=== PATIENT | male | born 1940 | race Caucasian/White ===

== ENCOUNTER 2020-10-18 15:48 | Inpatient (IN) | payer OTHER ==
--- NOTE | 2020-10-18 15:39 | R.PREADM ---
PRE-ADMISSION SCREENING FORM SCREENING DATE AND TIME 10/18/2020 08:48 (GLASS MAKER) ANTICIPATED REHAB ADMISSION DATE 10/20/2020 REFERRING FACILITY [facility] REFERRAL DATE AND TIME 10/18/2020 08:48 (GLASS MAKER) ACUTE ADMIT DATE 10/18/2020 Previous Rehabilitation(s): No. ACUTE CUSTOM SEAMSTRESS/DC TIME RECORDER FLAQUITO VELARDE ATTENDING PHYSICIAN VERONA REFERRING PHYSICIAN [facility] REHAB FACILITY [facility] CLINICAL LIAISON Rosalinda Qureshi PHYSICIAN REVIEWER Dr. Mitchel Nieves M.D. MR# [id number] NAME TABATHA BELTRE [address]ESS [id number] [facility] [place] [address] [place] [address] PHONE [facility] [id number] DATE OF 1940 AGE 80 SSN# [id number] GENDER male MARITAL STATUS RACE unknown race ADMIT FROM 01 - Home (private home/apt. board/care, assisted living, penitentiary, transitional living) PRE-HOSPITAL LIVING SETTING 01 - Home (private home/apt. board/care, assisted living, penitentiary, transitional living) HOME TYPE AND DETAILS Type of home: single family house # of levels in the residence: 1 # of steps within the residence: 0 # of steps to enter the residence: 0 PRE-HOSPITAL LIVING WITH Family/Relatives FAMILY SUPPORT Yes PRIMARY FAMILY CONTACT NAME LIZET BELTRE PRIMARY FAMILY CONTACT PHONE PRIMARY FAMILY CONTACT ALT. PHONE PRIMARY FAMILY CONTACT RELATIONSHIP Spouse PHONE PRIMARY FAMILY CONTACT ON ADM.? no IS PRIMARY FAMILY CONTACT AUTH. REP.? no 1ST EMERGENCY CONTACT LIZET BELTRE 1ST CONTACT PHONE 1ST CONTACT ALT. PHONE 1ST CONTACT RELATIONSHIP Spouse PHONE 1ST CONTACT ON ADM. no IS 1ST CONTACT AUTH. REP.? no PHONE 2ND CONTACT ON ADM.? no PATIENT EMPLOYMENT STATUS Retired (for age) PATIENT EMPLOYER No Employer PAYOR INFORMATION: 1ST PAYOR NAME MEDICARE 1ST PAYOR PHONE 1ST PAYOR INJURY/ILLNESS DUE TO ACCIDENT? No ANOTHER DEMOCRAT RESPONSIBLE? No PRIMARY REHAB/ACUTE DIAGNOSIS: FX SHOULDER, DEBILITATED ONSET DATE 10/18/2020 REHAB IMPAIRMENT CATEGORY (TEVIN): 20 Miscellaneous (Misc) does NOT meet 60% rule PRIMARY DIAGNOSIS-RELATED SURGERIES: N/A SUMMARY OF ACUTE HOSPITALIZATION: Pt. is a 80 yo Right-handed male of unknown race. On 10/18/2020 he was admitted to [facility] with diagnosis FX SHOULDER, DEBILITATED. His impairment category is Debility 16 - Debility (16). Pre-morbidly, Pt. was independent/mod-I in Self-Care, Communication, and Social Cognition; and he had good Locomotion, Transfers Control, Sphincter Control, and Social Cognition. Currently, he has deficits of Locomotion, Balance, Safety Awareness, Sphincter Control, and Endurance . Pt. is now referred to [facility] for acute in-patient rehabilitation in order to maximize patient's functional independence in activities of daily living, strength, ROM, and mobi lity. Patient has realistic goal of being discharged at assistance level 7-Ind to reside at Home with Fami ly/Relatives. 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 CURRENT SPHINCTER CONTROL: Pre-hospital bladder status: unspecified # of bladder accidents in the last 7 days prior to screenin Pre-hospital bowel status: unspecified # of bowel accidents in the last 7 days prior to screenin Last Bowel Movement Date: 10/18/2020 CURRENT LOCOMOTION STATUS: distance walked LESS THAN 50 feet W RW DETAILED CURRENT FUNCTIONAL STATUS: - Bladder accident frequency: Ind - No accidents in the past 7 days - Bowel accident frequency: Ind - No accidents in the past 7 days - Walking score based on distance walked: 0(N/A) - Wheelchair score based on distance traveled: 0(N/A) QI SCORES: - Self-Care A. Eating 03-Partial/moderate assistance B. Oral hygiene 03-Partial/moderate assistance C. Toileting hygiene 03-Partial/moderate assistance E. Shower/bathe self 03-Partial/moderate assistance F. Upper body dressing 03-Partial/moderate assistance G. Lower body dressing 03-Partial/moderate assistance H. Putting on/taking off footwear 03-Partial/moderate assistance - Mobility A. Roll left and right 03-Partial/moderate assistance B. Sit to lying 03-Partial/moderate assistance C. Lying to sitting on side of bed 03-Partial/moderate assistance D. Sit to stand 03-Partial/moderate assistance E. Chair/bmk-wa-stdto transfer 03-Partial/moderate assistance F. Toilet transfer 03-Partial/moderate assistance G. Car transfer 03-Partial/moderate assistance I. Walk 10 feet 03-Partial/moderate assistance J. Walk 50 feet with two turns 88-Not attempted due to medical condition or safety concerns K. Walk 150 feet 88-Not attempted due to medical condition or safety concerns L. Walking 10 feet on uneven surfaces 88-Not attempted due to medical condition or safety concerns M. 1 step (curb) 88-Not attempted due to medical condition or safety concerns N. 4 steps 88-Not attempted due to medical condition or safety concerns O. 12 steps 88-Not attempted due to medical condition or safety concerns P. Picking up object 88-Not attempted due to medical condition or safety concerns R. Wheel 50 feet with two turns 88-Not attempted due to medical condition or safety concerns S. Wheel 150 feet 88-Not attempted due to medical condition or safety concerns - Bladder and Bowel Bladder continence Bowel continence - Endurance Good - Balance Good - Safety Awareness Good CURRENT FUNC. DEFICITS: Self-Care and Mobility CURRENT / PREVIOUS ASSISTIVE DEVICES: Rolling Walker HISTORY OF FALLS. HAS THE PATIENT HAD TWO OR MORE FALLS IN THE PAST YEAR OR ANY FALL WITH INJURY IN T HE PAST YEAR?: No PRIOR SURGERY. DID THE PATIENT HAVE MAJOR SURGERY DURING THE 100 DAYS PRIOR TO ADMISSION?: No THERAPY NOTES FROM ACUTE CARE: Attached. SPECIAL NEEDS: - Safety Concerns Skin breakdown precautions needed due to skin breakdown risk PATIENT NEEDS ACTIVE AND ONGOING THERAPEUTIC INTERVENTION OF MULTIPLE THERAPY DISCIPLINES, INCLUDING: - Dietary and Nutrition Adequate Nutrition. Nutritional Education. Nutritional Supplements. PATIENT NEEDS CLOSE MEDICAL SUPERVISION BY A REHABILITATION PHYSICIAN FOR: Coordination of Treatment Team PATIENT REQUIRES 24X7 REHAB NURSING FOR MEDICAL AND FUNCTIONAL MGT. OF THE FOLLOWING DEFICITS: Disease Management Medication Management Patient/Family Education Providing Safe Environment PATIENT REQUIRES INTENSIVE, COORDINATED INTERDISCIPLINARY APPROACH TO REHAB: Arranging Home Equipment/Services Discharge Planning Family Intervention/Training Experimental Physicist/Case Management PATIENT REHAB POTENTIAL: Warren BELTRE is able and expected to receive 3 hours of individualized therapy daily on at least 5 of every 7 days Warren Govea prognosis for significant practical improvement within a reasonable period of time appe ars Good Expected level of measurable improvement will be of a practical value to Warren BELTRE's functional cap acity or adaptations to impairments Has a viable Discharge Plan Medically appropriate; condition is sufficiently stable to participate in intensive rehab program DISCHARGE PLAN: - Estimated Length of Stay (days) 13. - Consensus on plan Discharge plan has been discussed with primary caregiver. Patient/Family is in agreement with the jeffrey n. Primary caregiver is in agreement with the plan. - Patient/Family Goals Return home independently. - Planned Living Setting Upon Discharge Home, to live with Family/Relatives. Transitional Living. RECOMMENDED CARE LEVEL: IRF RECOMMENDATION DETAILS: Recommended Admission to Comprehensive Rehabilitation Program to Increase Functional Riley SCREENER'S COMPLETENESS CONFIRMATION: - Screening Confirmation The patient data collection on this preadmission screening form is finished PHYSICIANS REVIEW AND ADMISSION DETERMINATION Admit - Based on my review of the Pre-Admission Screening results, in my medical judgment and experie nce, I concur with the findings and recommend admission to [facility], as this patient requires an IRF level of care. SIGNATURE PANEL: Internal Grinder Tender - [electronically] signed by Rosalinda Qureshi on 10/18/2020 at 09:37 (GLASS MAKER) Internal Grinder Tender - [electronically] signed by Darwin Carlin PT on 10/18/2020 at 15:01 (GLASS MAKER) Physician Reviewer - [electronically] signed by Dr. Mitchel Nieves M.D. on 10/18/2020 at 15:39 (GLASS MAKER )
[2020-10-19 10:51] VITALS: BMI 3924.6
[2020-10-19] MEDS ORDERED: ALBUTEROL IH PRN ×2 (11:25→14:25)
[2020-10-19] MEDS ORDERED: IPRATROPIUM IH PRN ×2 (11:25→14:25)
[2020-10-19] MEDS ORDERED: ALBUTEROL 2.5 MG/3 ML NEB SOL NEB PRN (12:00)
[2020-10-19] MEDS ORDERED: IPRATROPIUM BROM 0.5MG/2.5ML IH PRN (12:01)
--- NOTE | 2020-10-19 13:17 | R.HP ---
HISTORY AND PHYSICAL FACILITY: [facility] ENCOUNTER DATE AND TIME: 10/19/2020 13:06 (DIRECTOR FUNERAL) MR#: [id number] NAME TABATHA BELTRE ADDRESS: [address] [place] [address] [facility] [place] [id number] PHONE: DATE OF : 1940 AGE: 80 SSN# [id number] GENDER: Male DEXTERITY Right-handed MARITAL STATUS RACE Unknown race PRE-HOSPITAL LIVING SETTING 01 - Home (private home/apt. board/care, assisted living, long term, transitional living) PRE-HOSPITAL LIVING WITH Family/Relatives ENCOUNTER PHYSICIAN: Dr. Mitchel Nieves M.D. REFERRING DOCTOR: LARON RHOADES DATE OF ADMISSION: 10/19/2020 13:06 (DIRECTOR FUNERAL) REFERRING FACILITY [facility] HOME TYPE AND DETAILS: Type of home: single family house # of levels in the residence: 1 # of steps within the residence: 0 # of steps to enter the residence: 0 ONSET DATE: 10/18/2020 PRIMARY DIAGNOSIS-RELATED SURGERIES: N/A HISTORY OF PRESENT ILLNESS (HPI): Pt. is a 80 yo Right-handed male of unknown race. On 10/18/2020 he was admitted to [facility] with diagnosis FX SHOULDER, DEBILITATED. His impairment category is Debility 16 - Debility (16). Pre-morbidly, Pt. was independent/mod-I in Self-Care, Communication, and Social Cognition; and he had good Locomotion, Transfers Control, Sphincter Control, and Social Cognition. Currently, he has deficits of Locomotion, Balance, Safety Awareness, Sphincter Control, and Endurance . Pt. is now referred to [facility] for acute in-patient rehabilitation in order to maximize patient's functional independence in activities of daily living, strength, ROM, and mobi lity. Patient has realistic goal of being discharged at assistance level 7-Ind to reside at Home with Fami ly/Relatives. MEDICATION ALLERGIES: No Known Drug Allergies (NKDA) ENVIRONMENTAL ALLERGIES: - Substance Allergies None Known - Other Allergies None Known PAST MEDICAL HISTORY: HYPERTENSION HIGH CHOLESTEROL CARDIOMEGALY CHF FX SHOULDER WOUND LEFT BUTTOCK AFIB CAD COPD FATIGUE GENERALIZED WEAKNESS PROSTATE CANCER LYMPHEDMA OSTEOARTHRITIS PAST SURGICAL HISTORY: QUADRUPLE BYPASS IN 2002 SOCIAL HISTORY: - Home Living Family/Relatives REVIEW OF SYSTEMS: - Gen No Chills Fatigue No Fever - Eyes No Double Vision No itchiness - ENMT No Difficulty Swallowing - CVS No Chest Discomfort No Chest Pain Fatigue No Weight Gain - Resp No Cough No Shortness of Breath - GI Continent No Abdominal Pain No Constipation No Diarrhea - Continent No Kidney Pain No Painful Urination No Urinary Urgency Excess urinary frequency due prostate cancer. - MSK No Joint Pain No Muscle Cramps Stiffness - Skin No Itching No Rash No Suspicious Lesions Bilateral leg and foot skin desquamation worse on the left with left leg cellulitis. - Neuro Coordination Difficulty No Difficulty with Concentration No Memory Loss No Seizures Weakness - Psych No Anxiety No Depression No HIV Exposure No Persistent Infections No Seasonal Allergies - Endo No Cold/Heat Intolerance No Excessive Hunger No Excessive Thirst No Excessive Urination PHYSICAL EXAM - Gen Patient sitting in wheelchair - Skin Left more than right leg skin desquamation and hyperemic left leg cellulitis Normacephalic - Eyes No abnormalities - ENMT No abnormalities - Neck No abnormalities - CVS RRR - Chest No abnormalities - Resp No wheezing - Abd Soft - GI Non distended No abnormalities - Frequent urination due to prostate cancer - Ext Moderate edema in both lower extremities. - MSK 4+/5 weakness in both lower extremities. - Neuro No focal deficits - Psych No abnormalities VITAL SIGNS Temperature: 98.2 F SBP/DBP: 125/89 Pulse: 55 Resp: 16 NURSING: - Shower allowing shower ACTIVITIES OOB only with supervision QI SCORES: - Self-Care A. Eating 03-Partial/moderate assistance B. Oral hygiene 03-Partial/moderate assistance C. Toileting hygiene 03-Partial/moderate assistance E. Shower/bathe self 03-Partial/moderate assistance F. Upper body dressing 03-Partial/moderate assistance G. Lower body dressing 03-Partial/moderate assistance H. Putting on/taking off footwear 03-Partial/moderate assistance - Mobility A. Roll left and right 03-Partial/moderate assistance B. Sit to lying 03-Partial/moderate assistance C. Lying to sitting on side of bed 03-Partial/moderate assistance D. Sit to stand 03-Partial/moderate assistance E. Chair/sil-bx-spfxe transfer 03-Partial/moderate assistance F. Toilet transfer 03-Partial/moderate assistance G. Car transfer 03-Partial/moderate assistance I. Walk 10 feet 03-Partial/moderate assistance J. Walk 50 feet with two turns 88-Not attempted due to medical condition or safety concerns K. Walk 150 feet 88-Not attempted due to medical condition or safety concerns L. Walking 10 feet on uneven surfaces 88-Not attempted due to medical condition or safety concerns M. 1 step (curb) 88-Not attempted due to medical condition or safety concerns N. 4 steps 88-Not attempted due to medical condition or safety concerns O. 12 steps 88-Not attempted due to medical condition or safety concerns P. Picking up object 88-Not attempted due to medical condition or safety concerns R. Wheel 50 feet with two turns 88-Not attempted due to medical condition or safety concerns S. Wheel 150 feet 88-Not attempted due to medical condition or safety concerns - Bladder and Bowel Bladder continence Bowel continence - Endurance Good - Balance Good - Safety Awareness Good CURRENT FUNC. DEFICITS: Self-Care and Mobility MEDICATIONS: - Other See attached MAR (Medication Administration Record) ASSESSMENT: Pt. is a 80 yo Right-handed male of unknown race.On 10/18/2020 he was admitted to [facility] with diagnosis FX SHOULDER, DEBILITATED.His impairment category is Debility 16 - Debility (16). Pre-morbidly, Pt. was independent/mod-I in Self-Care, Communication, and Social Cognition; and he had good Locomotion, Transfers Control, Sphincter Control, and Social Cognition.Currently, he has defici ts of Locomotion, Balance, Safety Awareness, Sphincter Control, and Endurance.Pt. is now referred to [facility] for acute in-patient rehabilitation in order to maximize patient's functional independence in activities of daily living, strength, ROM, and mobility.- Rehab Goal Patient has realistic goal of being discharged at assistance level 7-Ind to reside at Home with Fami ly/Relatives. - Physical Therapy Need for home safety evaluation - to improve, our physical therapists will perform initial evaluation of pt's status upon admission and devise an individualized program for Home Evaluation Need in caregiver upon discharge - to improve, our physical therapists will perform initial evaluatio n of pt's status upon admission and devise an individualized program for Caregiver Training New precaution - to improve, our physical therapists will perform initial evaluation of pt's status u garry admission and devise an individualized program for Patient precaution education Edema - to improve, our physical therapists will perform initial evaluation of pt's status upon admi ssion and devise an individualized program for Elevation Training, and Lymphedema Therapy Poor balance - to improve, our physical therapists will perform initial evaluation of pt's status upo n admission and devise an individualized program for Balance Training Poor endurance - to improve, our physical therapists will perform initial evaluation of pt's status u garry admission and devise an individualized program for Endurance Training Achieving independence - to improve, our physical therapists will perform initial evaluation of pt's status upon admission and devise an individualized program for Community Reintegration Activities - Occupational Therapy Need for critical care technician - to improve, our occupation therapists will perform initial evaluation of pt's s tatus upon admission and devise an individualized program for Caregiver Training MEDICAL PLAN: - Diet Type Start Regular - Diet - Liquid Texture Start Regular - Tube Feed Start N/A - Other See attached MAR (Medication Administration Record) - Diet - Solid Texture Regular - Shower shower DISCHARGE PLAN: - Estimated Length of Stay (days) 13. - Consensus on plan Discharge plan has been discussed with primary caregiver. Patient/Family is in agreement with the jeffrey n. Primary caregiver is in agreement with the plan. - Patient/Family Goals Return home independently. - Planned Living Setting Upon Discharge Home, to live with Family/Relatives. Transitional Living. SIGNATURE PANEL: (DIRECTOR FUNERAL)
[2020-10-19 14:17] LABS: Urine Appearance CLEAR; Urine Bilirubin NEGATIVE (NEG); Urine Blood NEGATIVE (NEG); Urine Color YELLOW; Urine Glucose NEGATIVE (NEG); Urine Protein NEGATIVE (NEG); Urine Urobilinogen 0.2 mg/dL (0.2-1.0); Urine pH 6.5 (5.0-7.0)
[2020-10-19 15:41] LABS: Urine Bacteria <20 /HPF (NONE SEEN); Urine RBC NONE SEEN /HPF (NONE SEEN)
[2020-10-19] MEDS: ENOXAPARIN 30 MG/0.3 ML SQ SCH (16:19)
--- NOTE | 2020-10-19 17:53 | P.HP ---
Certification for Inpatient Patient admitted to: Inpatient With expected LOS: >2 Midnights Practitioner: I am a practitioner with admitting privileges, knowledge of patient current condition, hospital course, and medical plan of care. Services: Services provided to patient in accordance with Admission requirements found in Title 42 Section 412.3 of the Code of Federal Regulations Patient History Date of Service: 10/19/20 Reason for admission: FALLS OFTEN. DJD History of Present Illness: MR. BELTRE IS DECONDITIONED GENTLEMAN WITH SEVERE DJD, EDEMA AND HAS R SIDE FRACTURE OF ONE OF SHOULDER BONES PER . HE IS NOT ABLE TO USE R ARM , HAS GOTTEN WEAK AND NOT ABLE TO WALK WHEN BEFOREHE USED TO WALK WITH WALKER. 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 HE HAS NO DVT. Allergies No Known Drug Allergies Allergy (Verified 11/26/17 10:19) Unknown Home medications list reviewed: Yes Home Medications: Aspirin 81 mg PO DAILY 09/15/14 Furosemide [Lasix] 80 tab PO DAILY 09/15/14 Ipratropium/Albuterol Sulfate [Combivent Respimat 20-100 Mcg] 20 mcg IH PRN PRN 09/15/14 Metoprolol Tartrate [Lopressor] 50 mg PO BID 09/15/14 Potassium Chloride [Micro-K] 10 meq PO DAILY 09/15/14 Allopurinol 1 tab PO DAILY 10/18/19 Amiodarone HCl [Cordarone*] 1 tab PO DAILY 10/18/19 Atorvastatin Calcium [Lipitor] 80 mg PO DAILY 10/18/20 Ciprofloxacin HCl 500 mg PO BID 10/18/20 Mag Hydroxide 8% [Milk Of Magnesia] 30 ml PO DAILY PRN 10/18/20 Multivit-Min/FA/Lycopen/Lutein [Centrum Silver Tablet] 1 each PO DAILY 10/18/20 Citracal Slow Release 1200 1 tab PO DAILY 10/19/20 - Past Medical/Surgical History Has patient received pneumonia vaccine in the past: No Diabetic: No -: Hypertension -: High Cholesterol -: Cardiomegaly -: CHF -: Quadruple bypass in 2001 - Family History Father -: Hypertension, Stroke Mother -: Hypertension - Social History Smoking Status: Former smoker Alcohol use: Yes CD- Drugs: No Caffeine use: Yes Place of Residence: Home Review of Systems 10-point ROS is otherwise unremarkable General: Weakness Physical Examination - Vital Signs Temperature: 98.2 F Blood Pressure: 125/89 Pulse: 55 Respirations: 20 Pulse Ox (%): 98 - Physical Exam General: Oriented x3, Mild distress HEENT: Atraumatic, PERRLA, Mucous membr. moist/pink, EOMI, Sclerae nonicteric Neck: Supple, 2+ carotid pulse no bruit, No LAD, Without JVD or thyroid abnormality Respiratory: Clear to auscultation bilaterally, Normal air movement Cardiovascular: Regular rate/rhythm, Normal S1 S2, Edema Gastrointestinal: Normal bowel sounds, No tenderness Musculoskeletal: No tenderness, Other (DJD, SEVERE DIFFUSE.) Integumentary: No rashes Neurological: Normal gait, Normal speech, Normal strength at 5/5 x4 extr, Normal tone, Normal affect Lymphatics: No axilla or inguinal lymphadenopathy Assessment and Plan - Problems (Diagnosis) (1) Risk for falls Current Visit: Yes Status: Acute Plan: HE IS DEBILITATED. LIVES WITH . NOT ABLE TO AMBULATE NEEDS TO BE TRAINED WITH WALKER AND DISABLED RIGHT ARM. (2) Hypertension Current Visit: No Status: Chronic Qualifiers: Hypertension type: essential hypertension Qualified Code(s): I10 - E ssential (primary) hypertension (3) Osteoarthritis Current Visit: No Status: Chronic Qualifiers: Osteoarthritis location: multiple joints - Advance Directives Does patient have a Living Will: No Does patient have a Durable POA for Healthcare: No
[2020-10-19] MEDS: CIPROFLOXACIN HCL 500 MG TAB PO SCH (20:03)
[2020-10-19] MEDS: METOPROLOL TAR 50 MG TAB PO SCH (20:03)
[2020-10-19] MEDS: MELATONIN 3 MG TABLET PO PRN (20:04)
[2020-10-19] MEDS: DOCUSATE NA/SENNA CONC 1 TAB PO PRN (20:04)
[2020-10-19] MEDS: TAMSULOSIN 0.4 MG SR CAP PO SCH (20:04)
--- NOTE | 2020-10-19 20:07 | RAD REPORT ---
EXAM DESCRIPTION: RAD - Scapula Right - 10/19/2020 6:33 pm CLINICAL HISTORY: PAIN, scapula injury 4 months earlier COMPARISON: No comparisons FINDINGS: AP and scapular Y-view obtained. The shaft of the humerus obscures much of the scapula on the scapular Y-view. No fracture or gross abnormality of the scapula seen. Degenerative changes are p resent the glenohumeral joint space. IMPRESSION: Limited study showing no scapula abnormality.
--- NOTE | 2020-10-19 20:09 | RAD REPORT ---
EXAM DESCRIPTION: RAD - Chest Single View - 10/19/2020 6:33 pm CLINICAL HISTORY: Chest pain COMPARISON: October 2019 TECHNIQUE: AP portable chest image was obtained 10/19/2020 6:33 pm . FINDINGS: Patient has chronic interstitial lung disease that is not clearly different from compariso n. Patient is kyphotic and is head covers a portion of the right apex. No peripheral mass or consolid ation suspected. No significant failure or volume overload. Heart and vasculature are normal. No nicole urable pleural effusion and no pneumothorax. No acute bony abnormality seen. No acute aortic findings suspected. IMPRESSION: Limited portable study showing chronic interstitial lung disease similar to October 2019 .
[2020-10-20] MEDS: ACETAMINOPHEN 500 MG TAB PO PRN ×3 (00:40→19:28)
[2020-10-20] MEDS: MAGNESIUM HYDROXIDE 8% 30 ML PO PRN (07:09)
[2020-10-20] MEDS ORDERED: CITRACAL SLOW PO SCH (08:00)
[2020-10-20] MEDS ORDERED: POTASSIUM CL SA 10 MEQ TAB PO SCH (08:00)
[2020-10-20] MEDS: CITRACAL SLOW PO SCH (08:06)
[2020-10-20] MEDS: POTASSIUM CL ER 10 MEQ TABLET PO SCH (08:10)
[2020-10-20] MEDS: allopurinoL 300 MG TAB PO SCH (08:11)
[2020-10-20] MEDS: ASPIRIN EC 81 MG TAB PO SCH (08:11)
[2020-10-20] MEDS: FUROSEMIDE 40 MG TABLET PO SCH (08:11)
[2020-10-20] MEDS: ATORVASTATIN 80 MG TAB PO SCH (08:12)
[2020-10-20] MEDS: AMIODARONE HCL 200 MG TAB PO SCH (08:12)
[2020-10-20] MEDS: CALCIUM CARBONATE 500 MG TAB PO SCH (08:12)
[2020-10-20] MEDS: CIPROFLOXACIN HCL 500 MG TAB PO SCH ×2 (08:12→19:24)
[2020-10-20] MEDS: MULTIVIT W/ MINERAL TAB PO SCH (08:12)
[2020-10-20] MEDS: METOPROLOL TAR 50 MG TAB PO SCH ×2 (08:12→19:23)
[2020-10-20 08:26] LABS: Absolute Lymphocytes (CBC) 1.8 K/uL (0.7-4.9); Basophils % 0.5 % (0-1.3); Hematocrit 32.8 % (39.6-49.0); Lymphocytes % 33.7 % (15.3-44.8); MPV 9.2 fL (7.6-11.3); RBC Red Blood Cell Count 3.24 M/uL (4.33-5.43)
[2020-10-20 08:34] LABS: Albumin 2.8 g/dL (3.4-5.0); Potassium 3.9 mmol/L (3.5-5.1); Prealbumin 18.7 mg/dL (20-40)
--- NOTE | 2020-10-20 10:21 | RAD REPORT ---
EXAM DESCRIPTION: RAD - Humerus Right - 10/20/2020 9:44 am CLINICAL HISTORY: PAIN COMPARISON: No comparisons FINDINGS: Right humerus surgical neck fracture is present. Fracture line is indistinct and callus fo rmation is identifiable. This would indicate a fracture several weeks old. An acute fracture line is not identified. No dislocation. Greater tuberosity degenerative changes are present. Inferiorly direc fermin spurring is seen at the AC joint. No dislocation of the humeral head. No pathologic changes. No f oreign body or other soft tissue abnormality. Degenerative changes are present at the elbow joint wi thout acute finding. IMPRESSION: Subacute proximal right humerus fracture as detailed.
[2020-10-20] MEDS ORDERED: FLEET ENEMA ADULT PR PRN (11:28)
[2020-10-20] MEDS: BISACODYL 10 MG RECTAL SUPP PR PRN (12:01)
[2020-10-20] MEDS: ENOXAPARIN 30 MG/0.3 ML SQ SCH (16:23)
[2020-10-20] MEDS: MELATONIN 3 MG TABLET PO PRN (19:24)
[2020-10-20] MEDS: TAMSULOSIN 0.4 MG SR CAP PO SCH (19:24)
--- NOTE | 2020-10-20 20:43 | P.PN ---
Subjective Date of Service: 10/20/20 Chief Complaint: FALLS OFTEN. DJD Subjective: Improving HE IS DECONDITIONED, HAS R HUMERUS FRACTURE AND ORHTO IS DOING CONSERVATIVE THERAPY. HE NEEDS TO BE TRAINED TO WALK AGAIN. Review of Systems 10-point ROS is otherwise unremarkable General: Weakness, Malaise Physical Examination - Vital Signs Temperature: 97.3 F Blood Pressure: 133/58 Pulse: 50 Respirations: 18 Pulse Ox (%): 96 - Physical Exam General: Mild distress HEENT: Atraumatic, PERRLA, EOMI Neck: Supple, JVD not distended Respiratory: Clear to auscultation bilaterally, Normal air movement Cardiovascular: Regular rate/rhythm, Normal S1 S2 Gastrointestinal: Normal bowel sounds, No tenderness Musculoskeletal: No tenderness Integumentary: No rashes Neurological: Normal speech, Normal tone, Normal affect Lymphatics: No axilla or inguinal lymphadenopathy - Studies Laboratory Data (last 24 hrs) 10/20/20 07:33: Sodium 140, Potassium 3.9, BUN 31 H, Creatinine 1.85 H, Glucose 154 H, Magnesium 2.0 10/20/20 07:33: WBC 5.3, Hgb 11.2 L, Hct 32.8 L, Plt Count 160 Medications List Reviewed: Yes Assessment And Plan - Current Problems (Diagnosis) (1) Risk for falls Current Visit: Yes Status: Acute Plan: HE IS DEBILITATED. LIVES WITH . NOT ABLE TO AMBULATE NEEDS TO BE TRAINED WITH WALKER AND DISABLED RIGHT ARM. (2) Hypertension Current Visit: No Status: Chronic Qualifiers: Hypertension type: essential hypertension Qualified Code(s): I10 - Essential (primary) hypertension (3) Osteoarthritis Current Visit: No Status: Chronic Qualifiers: Osteoarthritis location: multiple joints (4) Right humeral fracture Current Visit: Yes Status: Acute Plan: HE ALREADY HAS BEEN SEEN BY ORTHO MD. 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 WORKING WELL SO FAR THIS IS A CHRONIC ISSUE.
[2020-10-21] MEDS: METOPROLOL TAR 50 MG TAB PO SCH (08:00)
[2020-10-21] MEDS: ASPIRIN EC 81 MG TAB PO SCH (08:41)
[2020-10-21] MEDS: allopurinoL 300 MG TAB PO SCH (08:41)
[2020-10-21] MEDS: ATORVASTATIN 80 MG TAB PO SCH ×2 (08:41→19:16)
[2020-10-21] MEDS: MULTIVIT W/ MINERAL TAB PO SCH (08:41)
[2020-10-21] MEDS: CIPROFLOXACIN HCL 500 MG TAB PO SCH ×2 (08:43→19:16)
[2020-10-21] MEDS: AMIODARONE HCL 200 MG TAB PO SCH (08:43)
[2020-10-21] MEDS: CALCIUM CARBONATE 500 MG TAB PO SCH (08:43)
[2020-10-21] MEDS: CITRACAL SLOW PO SCH (08:44)
[2020-10-21] MEDS: POTASSIUM CL ER 10 MEQ TABLET PO SCH (08:45)
[2020-10-21] MEDS: FUROSEMIDE 40 MG TABLET PO SCH ×2 (08:48→13:23)
[2020-10-21] MEDS: METOPROLOL TAR 25 MG TAB PO SCH ×2 (09:53→19:16)
[2020-10-21] MEDS ORDERED: guaiFENesin 100 MG/5 ML UCUP PO PRN (10:06)
[2020-10-21] MEDS: ACETAMINOPHEN 500 MG TAB PO PRN (13:22)
--- NOTE | 2020-10-21 13:52 | P.PN ---
Subjective Date of Service: 10/21/20 Chief Complaint: FALLS OFTEN. DJD Subjective: Improving HE IS DECONDITIONED, HAS R HUMERUS FRACTURE AND ORHTO IS DOING CONSERVATIVE THERAPY. HE NEEDS TO BE TRAINED TO WALK AGAIN. COUGH TODAY. HE WAS COVID NEG. Review of Systems 10-point ROS is otherwise unremarkable General: Weakness, Malaise Respiratory: Cough Physical Examination - Vital Signs Temperature: 98.1 F Blood Pressure: 125/54 Pulse: 52 Respirations: 18 Pulse Ox (%): 95 - Physical Exam General: Oriented x3, Mild distress, Obese HEENT: Atraumatic, PERRLA, EOMI Neck: Supple, JVD not distended Respiratory: Clear to auscultation bilaterally, Normal air movement Cardiovascular: Regular rate/rhythm, Normal S1 S2 Gastrointestinal: Normal bowel sounds, No tenderness Musculoskeletal: No tenderness Integumentary: No rashes Neurological: Normal speech, Normal tone, Normal affect Lymphatics: No axilla or inguinal lymphadenopathy - Studies Microbiology Data (last 24 hrs): 10/19/20 13:30 Clean Catch Urine [place] Count - Final No growth. 10/19/20 13:30 Clean Catch Urine - Final No growth. Medications List Reviewed: Yes Assessment And Plan - Current Problems (Diagnosis) (1) Risk for falls Current Visit: Yes Status: Acute Plan: HE IS DEBILITATED. LIVES WITH . NOT ABLE TO AMBULATE NEEDS TO BE TRAINED WITH WALKER AND DISABLED RIGHT ARM. (2) Hypertension Current Visit: No Status: Chronic Qualifiers: Hypertension type: essential hypertension Qualified Code(s): I10 - Essential (primary) hypertension (3) Osteoarthritis Current Visit: No Status: Chronic Qualifiers: Osteoarthritis location: multiple joints (4) Right humeral fracture Current Visit: Yes Status: Acute Plan: HE ALREADY HAS BEEN SEEN BY ORTHO MD. 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 WORKING WELL SO FAR THIS IS A CHRONIC ISSUE. (6) Cough Current Visit: Yes Status: Acute Plan: MANDY DM. IF NEED WILL DO FU CXR.
[2020-10-21] MEDS: ENOXAPARIN 30 MG/0.3 ML SQ SCH (16:06)
[2020-10-21] MEDS: TAMSULOSIN 0.4 MG SR CAP PO SCH (19:16)
[2020-10-22] MEDS: ACETAMINOPHEN 500 MG TAB PO PRN ×2 (04:39→20:22)
[2020-10-22 06:33] LABS: Potassium 4.4 mmol/L (3.5-5.1)
[2020-10-22] MEDS: allopurinoL 300 MG TAB PO SCH (07:11)
[2020-10-22] MEDS: METOPROLOL TAR 25 MG TAB PO SCH ×2 (07:11→20:19)
[2020-10-22] MEDS: AMIODARONE HCL 200 MG TAB PO SCH (07:12)
[2020-10-22] MEDS: CITRACAL SLOW PO SCH (07:12)
[2020-10-22] MEDS: CALCIUM CARBONATE 500 MG TAB PO SCH (07:12)
[2020-10-22] MEDS: MULTIVIT W/ MINERAL TAB PO SCH (07:12)
[2020-10-22] MEDS: POTASSIUM CL ER 10 MEQ TABLET PO SCH (07:12)
[2020-10-22] MEDS: CIPROFLOXACIN HCL 500 MG TAB PO SCH ×2 (07:12→20:13)
[2020-10-22] MEDS: ASPIRIN EC 81 MG TAB PO SCH (07:12)
[2020-10-22] MEDS ORDERED: FUROSEMIDE 40 MG TABLET PO SCH (08:00)
--- NOTE | 2020-10-22 08:20 | P.PN ---
Subjective Date of Service: 10/22/20 Chief Complaint: FALLS OFTEN. DJD Subjective: Improving HE IS DECONDITIONED, HAS R HUMERUS FRACTURE AND ORHTO IS DOING CONSERVATIVE THERAPY. HE NEEDS TO BE TRAINED TO WALK AGAIN. COUGH TODAY. HE WAS COVID NEG. MR FIGUEROA IS DOING GOOD. THEY FOUND LISTERINE BOTTLE FULL OF WHISKEY FROM HIS ROOM. Physical Examination - Vital Signs Temperature: 97.9 F Blood Pressure: 143/64 Pulse: 56 Respirations: 16 Pulse Ox (%): 99 - Physical Exam General: Alert, In no apparent distress HEENT: Atraumatic, PERRLA, EOMI Neck: Supple, JVD not distended Respiratory: Clear to auscultation bilaterally, Normal air movement Cardiovascular: Regular rate/rhythm, Normal S1 S2, Other (L LEG EDEMA I SBETTER. THERE IS NO INFECTION.) Gastrointestinal: Normal bowel sounds, No tenderness Musculoskeletal: No tenderness Integumentary: No rashes Neurological: Normal speech, Normal tone, Normal affect Lymphatics: No axilla or inguinal lymphadenopathy - Studies Laboratory Data (last 24 hrs) 10/22/20 06:11: Sodium 139, Potassium 4.4, BUN 34 H, Creatinine 1.82 H, Glucose 111 H Microbiology Data (last 24 hrs): 10/19/20 13:30 Clean Catch Urine [place] Count - Final No growth. 10/19/20 13:30 Clean Catch Urine - Final No growth. Medications List Reviewed: Yes Assessment And Plan - Current Problems (Diagnosis) (1) Risk for falls Current Visit: Yes Status: Acute Plan: HE IS DEBILITATED. LIVES WITH . NOT ABLE TO AMBULATE NEEDS TO BE TRAINED WITH WALKER AND DISABLED RIGHT ARM. (2) Hypertension Current Visit: No Status: Chronic Qualifiers: Hypertension type: essential hypertension Qualified Code(s): I10 - Essential (primary) hypertension (3) Osteoarthritis Current Visit: No Status: Chronic Qualifiers: Osteoarthritis location: multiple joints (4) Right humeral fracture Current Visit: Yes Status: Acute Plan: HE ALREADY HAS BEEN SEEN BY ORTHO MD. 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 WORKING WELL SO FAR THIS IS A CHRONIC ISSUE. (6) Cough Current Visit: Yes Status: Acute Plan: MANDY DM. IF NEED WILL DO FU CXR.
[2020-10-22] MEDS: FUROSEMIDE 40 MG TABLET PO SCH (14:10)
[2020-10-22 15:15] LABS: Albumin 2.9 g/dL (3.4-5.0); Bilirubin Direct 0.1 mg/dL (0-0.2); Bilirubin Total 0.8 mg/dL (0.2-1.0); Protein, Total 7.4 g/dL (6.4-8.2)
[2020-10-22] MEDS: ENOXAPARIN 30 MG/0.3 ML SQ SCH (17:18)
[2020-10-22] MEDS: NICOTINE 14 MG/PAT TD SCH (17:19)
--- NOTE | 2020-10-22 20:00 | R.PN ---
PROGRESS NOTES ENCOUNTER DATE AND TIME: 10/22/2020 19:54 (LEGAL NURSE CONSULTANT) NAME TABATHA BELTRE DATE OF : 1940 DATE OF ADMISSION: 10/19/2020 13:06 (LEGAL NURSE CONSULTANT) FX SHOULDER, DEBILITATEDCHIEF COMPLAINT: Shoulder fracture and debility SUBJECTIVE: Pt denied any depression. Pt denied any Shortness of Breath. Ambulated 560' with contact guard to standby assistance. WBC 5.3, Hgb 11.2, Barnworker Groom 1.82, prealbumin 18.7. VITAL SIGNS Temperature: 97.9 F SBP/DBP: 143/64 Pulse: 56 Resp: 16 MEDICATION ALLERGIES: No Known Drug Allergies (NKDA) ENVIRONMENTAL ALLERGIES: - Substance Allergies None Known - Other Allergies None Known NURSING: - Shower allowing shower ACTIVITIES OOB only with supervision THERAPIES: - Dietary and Nutrition Adequate Nutrition. Nutritional Education. Nutritional Supplements. PHYSICAL EXAM - Gen Patient sitting in wheelchair - Skin Left more than right leg skin desquamation and hyperemic left leg cellulitis Normacephalic - Eyes No abnormalities - ENMT No abnormalities - Neck No abnormalities - CVS RRR - Chest No abnormalities - Resp No wheezing - Abd Soft - GI Non distended No abnormalities - Frequent urination due to prostate cancer - Ext Moderate edema in both lower extremities. - MSK 4+/5 weakness in both lower extremities. - Neuro No focal deficits - Psych No abnormalities ASSESSMENT: Pt. is a 80 yo Right-handed male of unknown race.On 10/18/2020 he was admitted to [facility] with diagnosis FX SHOULDER, DEBILITATED.His impairment category is Debility 16 - Debility (16). Pre-morbidly, Pt. was independent/mod-I in Self-Care, Communication, and Social Cognition; and he had good Locomotion, Transfers Control, Sphincter Control, and Social Cognition.Currently, he has defici ts of Locomotion, Balance, Safety Awareness, Sphincter Control, and Endurance.Pt. is now referred to [facility] for acute in-patient rehabilitation in order to maximize patient's functional independence in activities of daily living, strength, ROM, and mobility.- Rehab Goal Patient has realistic goal of being discharged at assistance level 7-Ind to reside at Home with Fami ly/Relatives. MDM/PLAN: - Physical Therapy Need for home safety evaluation - to improve, our physical therapists will perform initial evaluatio n of pt's status upon admission and devise an individualized program for Home Evaluation Need in caregiver upon discharge - to improve, our physical therapists will perform initial evaluati on of pt's status upon admission and devise an individualized program for Caregiver Training New precaution - to improve, our physical therapists will perform initial evaluation of pt's status upon admission and devise an individualized program for Patient precaution education Edema - to improve, our physical therapists will perform initial evaluation of pt's status upon admis beau and devise an individualized program for Elevation Training, and Lymphedema Therapy Poor balance - to improve, our physical therapists will perform initial evaluation of pt's status up on admission and devise an individualized program for Balance Training Poor endurance - to improve, our physical therapists will perform initial evaluation of pt's status upon admission and devise an individualized program for Endurance Training Achieving independence - to improve, our physical therapists will perform initial evaluation of pt's status upon admission and devise an individualized program for Community Reintegration Activities - Occupational Therapy Need for career services representative - to improve, our occupation therapists will perform initial evaluation of pt's status upon admission and devise an individualized program for Caregiver Training - Other See attached MAR (Medication Administration Record) - Diet Type Continue Regular - Diet - Liquid Texture Continue Regular - Tube Feed Continue N/A - Diet - Solid Texture Continue Regular - Shower allowing shower FUNCTIONAL STATUS: UPDATED AT WEEKLY TEAM CONFERENCE - Bladder Same accident frequency: 7-Ind - No accidents in the past 7 days - Bowel Same accident frequency: 7-Ind - No accidents in the past 7 days - Walking Same score based on distance walked: 0(N/A) - Wheelchair Same score based on distance traveled: 0(N/A) FUNCTIONAL STATUS: - Self-Care A. Eating Ind B. Grooming Pawan C. Bathing [place] D. Dressing - Upper [place] E. Dressing - Lower modA F. Toileting [place] - Sphincter Control G. Bladder control Pawan H. Bowel control Pawan - Transfers Control I. Bed/Chair/Wheelchair [place] J. Toilet [place] K. Tub/Shower modA - Locomotion L. Walk/Wheelchair (B) [place] M. Stairs maxA - Communication N. Comprehension (B) Ind O. Expression (B) Ind - Social Cognition P. Social Interaction Ind Q. Problem Solving Pawan R. Memory Ind - Endurance Good - Balance Good - Safety Awareness Good QI SCORES: - Self-Care A. Eating 03-Partial/moderate assistance B. Oral hygiene 03-Partial/moderate assistance C. Toileting hygiene 03-Partial/moderate assistance E. Shower/bathe self 03-Partial/moderate assistance F. Upper body dressing 03-Partial/moderate assistance G. Lower body dressing 03-Partial/moderate assistance H. Putting on/taking off footwear 03-Partial/moderate assistance - Mobility A. Roll left and right 03-Partial/moderate assistance B. Sit to lying 03-Partial/moderate assistance C. Lying to sitting on side of bed 03-Partial/moderate assistance D. Sit to stand 03-Partial/moderate assistance E. Chair/[id number] transfer 03-Partial/moderate assistance F. Toilet transfer 03-Partial/moderate assistance G. Car transfer 03-Partial/moderate assistance I. Walk 10 feet 03-Partial/moderate assistance J. Walk 50 feet with two turns 88-Not attempted due to medical condition or safety concerns K. Walk 150 feet 88-Not attempted due to medical condition or safety concerns L. Walking 10 feet on uneven surfaces 88-Not attempted due to medical condition or safety concerns M. 1 step (curb) 88-Not attempted due to medical condition or safety concerns N. 4 steps 88-Not attempted due to medical condition or safety concerns O. 12 steps 88-Not attempted due to medical condition or safety concerns P. Picking up object 88-Not attempted due to medical condition or safety concerns R. Wheel 50 feet with two turns 88-Not attempted due to medical condition or safety concerns S. Wheel 150 feet 88-Not attempted due to medical condition or safety concerns - Bladder and Bowel Bladder continence Bowel continence - Endurance Good - Balance Good - Safety Awareness Good CURRENT FUNC. DEFICITS: Self-Care and Mobility SIGNATURE PANEL: (LEGAL NURSE CONSULTANT)
[2020-10-22] MEDS: TAMSULOSIN 0.4 MG SR CAP PO SCH (20:19)
[2020-10-22] MEDS: JUVEN PACKET PO SCH (20:19)
[2020-10-22] MEDS: MELATONIN 3 MG TABLET PO PRN (20:20)
[2020-10-22] MEDS: ATORVASTATIN 80 MG TAB PO SCH (20:20)
[2020-10-22] MEDS: DOCUSATE NA/SENNA CONC 1 TAB PO PRN (20:20)
[2020-10-22] MEDS: LORAZEPAM 0.5 MG TABLET PO PRN (23:33)
--- NOTE | 2020-10-23 02:05 | FAST ---
[employer] FORM SHIFT START DATE/TIME: 10/22/2020 19:00 (WEB CONTENT DEVELOPER) SHIFT END DATE/TIME: 10/23/2020 07:00 (WEB CONTENT DEVELOPER) NAME TABATHA BELTRE DATE OF : 1940 DATE OF ADMISSION: 10/19/2020 13:06 (WEB CONTENT DEVELOPER) PHONE: AGE: 80 SSN# [id number] GENDER: Male ENCOUNTER PHYSICIAN: Dr. Mitchel Nieves M.D. ADMISSION DIAGNOSIS: - Debility 16 - Debility (16) FX SHOULDER, DEBILITATED. EATING: Not assessed/no information CODE: - ORAL HYGIENE: Not assessed/no information CODE: - TOILETING HYGIENE: TOILETING HYGIENE - STEP 1: Does the patient complete the activity by him/herself with no assistance (physical, verbal/nonverbal cueing, setup/clean-up)? No. TOILETING HYGIENE - STEP 2: Does the patient need only setup/clean-up assistance from one helper? No. TOILETING HYGIENE - STEP 3: Does the patient need only verbal/nonverbal cueing or touching/steadying/contact guard assistance fro m one helper? Yes. 1. [id number] ADMISSION PERFORMANCE: Supervision or touching assistance CODE: 04 BATHING: Not assessed/no information CODE: - DRESSING - UPPER BODY: Not assessed/no information CODE: - DRESSING - LOWER BODY: Not assessed/no information CODE: - PUTTING ON/TAKING OFF FOOTWEAR: Not assessed/no information CODE: - ROLL LEFT AND RIGHT: ROLL LEFT AND RIGHT - STEP 1: Does the patient complete the activity by him/herself with no assistance (physical, verbal/nonverbal cueing, setup/clean-up)? No. ROLL LEFT AND RIGHT - STEP 2: Does the patient need only setup/clean-up assistance from one helper? No. ROLL LEFT AND RIGHT - STEP 3: Does the patient need only verbal/nonverbal cueing or touching/steadying/contact guard assistance fro m one helper? Yes. 1. [id number] ADMISSION PERFORMANCE: Supervision or touching assistance CODE: 04 SIT TO LYING: SIT TO LYING - STEP 1: Does the patient complete the activity by him/herself with no assistance (physical, verbal/nonverbal cueing, setup/clean-up)? No. SIT TO LYING - STEP 2: Does the patient need only setup/clean-up assistance from one helper? No. SIT TO LYING - STEP 3: Does the patient need only verbal/nonverbal cueing or touching/steadying/contact guard assistance fro m one helper? Yes. 1. [id number] ADMISSION PERFORMANCE: Supervision or touching assistance CODE: 04 LYING TO SITTING: LYING TO SITTING ON SIDE OF BED - STEP 1: Does the patient complete the activity by him/herself with no assistance (physical, verbal/nonverbal cueing, setup/clean-up)? No. LYING TO SITTING ON SIDE OF BED - STEP 2: Does the patient need only setup/clean-up assistance from one helper? No. LYING TO SITTING ON SIDE OF BED - STEP 3: Does the patient need only verbal/nonverbal cueing or touching/steadying/contact guard assistance fro m one helper? Yes. 1. [id number] ADMISSION PERFORMANCE: Supervision or touching assistance CODE: 04 SIT TO STAND: Not assessed/no information CODE: - TRANSFERS: BED, CHAIR: [id number] TRANSFER - STEP 1: Does the patient complete the activity by him/herself with no assistance (physical, verbal/nonverbal cueing, setup/clean-up)? No. [id number] TRANSFER - STEP 2: Does the patient need only setup/clean-up assistance from one helper? No. CHAIR/[id number] TRANSFER - STEP 3: Does the patient need only verbal/nonverbal cueing or touching/steadying/contact guard assistance fro m one helper? Yes. 1. [id number] ADMISSION PERFORMANCE: Supervision or touching assistance CODE: 04 TRANSFER TOILET: Not assessed/no information CODE: - TRANSFERS: CAR: Not assessed/no information CODE: - WALK 10 FEET: Not assessed/no information CODE: - 1 STEP (CURB): Not assessed/no information CODE: - PICKING UP OBJECT: Not assessed/no information CODE: - DOES THE PATIENT USE A WHEELCHAIR/SCOOTER? CODE: EXPR WHEEL 50 FEET WITH TWO TURNS: Not assessed/no information CODE: - INDICATE THE TYPE OF WHEELCHAIR/SCOOTER USED: CODE: EXPR WHEEL 150 FEET: Not assessed/no information CODE: - INDICATE THE TYPE OF WHEELCHAIR/SCOOTER USED: CODE: EXPR BLADDER AND BOWEL: H350. BLADDER CONTINENCE (3-DAY ASSESSMENT PERIOD): Always continent (no documented incontinence) CODE: 0 H400. BOWEL CONTINENCE (3-DAY ASSESSMENT PERIOD): Always continent CODE: 0
[2020-10-23] MEDS: NICOTINE 14 MG/PAT TD SCH (07:58)
[2020-10-23] MEDS: JUVEN PACKET PO SCH ×2 (07:58→19:54)
[2020-10-23] MEDS: allopurinoL 300 MG TAB PO SCH (07:59)
[2020-10-23] MEDS: METOPROLOL TAR 25 MG TAB PO SCH ×2 (08:00→19:52)
[2020-10-23] MEDS: CIPROFLOXACIN HCL 500 MG TAB PO SCH ×2 (08:00→19:53)
[2020-10-23] MEDS: ASPIRIN EC 81 MG TAB PO SCH (08:00)
[2020-10-23] MEDS: MULTIVIT W/ MINERAL TAB PO SCH (08:00)
[2020-10-23] MEDS: AMIODARONE HCL 200 MG TAB PO SCH (08:00)
[2020-10-23] MEDS: CALCIUM CARBONATE 500 MG TAB PO SCH (08:00)
[2020-10-23] MEDS: THIAMINE HCL 100 MG TABLET PO SCH (08:00)
[2020-10-23] MEDS: CITRACAL SLOW PO SCH (08:01)
[2020-10-23] MEDS: POTASSIUM CL ER 10 MEQ TABLET PO SCH (08:01)
[2020-10-23] MEDS: FOLIC ACID 1 MG TABLET PO SCH (08:01)
[2020-10-23] MEDS: DOCUSATE NA 100 MG CAP PO SCH (08:03)
[2020-10-23] MEDS: MAGNESIUM HYDROXIDE 8% 30 ML PO PRN (14:32)
[2020-10-23] MEDS: ENOXAPARIN 30 MG/0.3 ML SQ SCH (16:59)
--- NOTE | 2020-10-23 17:57 | R.PN ---
PROGRESS NOTES ENCOUNTER DATE AND TIME: 10/23/2020 17:52 (MUSIC ADAPTER) NAME TABATHA BELTRE DATE OF : 1940 DATE OF ADMISSION: 10/19/2020 13:06 (MUSIC ADAPTER) FX SHOULDER, DEBILITATEDCHIEF COMPLAINT: Shoulder fracture and debility SUBJECTIVE: Pt denied any depression. Pt denied any Shortness of Breath. Ambulated 560' with contact guard to standby assistance. WBC 5.3, Hgb 11.2, Food Service Order Clerk 1.82, prealbumin 18.7. The patient had a Listerine bottle containing whiskey. The bottle was confiscated. LFTs showed mildly elevated AST of 78 and alkaline phosphatase of 156. Ambulated 400' with contact guard assistance using a rolling walker. VITAL SIGNS Temperature: 98.2 F SBP/DBP: 137/59 Pulse: 65 Resp: 16 MEDICATION ALLERGIES: No Known Drug Allergies (NKDA) ENVIRONMENTAL ALLERGIES: - Substance Allergies None Known - Other Allergies None Known NURSING: - Shower allowing shower ACTIVITIES OOB only with supervision THERAPIES: - Dietary and Nutrition Adequate Nutrition. Nutritional Education. Nutritional Supplements. PHYSICAL EXAM - Gen Patient sitting in wheelchair - Skin Left more than right leg skin desquamation and hyperemic left leg cellulitis Normacephalic - Eyes No abnormalities - ENMT No abnormalities - Neck No abnormalities - CVS RRR - Chest No abnormalities - Resp No wheezing - Abd Soft - GI Non distended No abnormalities - Frequent urination due to prostate cancer - Ext Moderate edema in both lower extremities. - MSK 4+/5 weakness in both lower extremities. - Neuro No focal deficits - Psych No abnormalities ASSESSMENT: Pt. is a 80 yo Right-handed male of unknown race.On 10/18/2020 he was admitted to [facility] with diagnosis FX SHOULDER, DEBILITATED.His impairment category is Debility 16 - Debility (16). Pre-morbidly, Pt. was independent/mod-I in Self-Care, Communication, and Social Cognition; and he had good Locomotion, Transfers Control, Sphincter Control, and Social Cognition.Currently, he has defici ts of Locomotion, Balance, Safety Awareness, Sphincter Control, and Endurance.Pt. is now referred to [facility] for acute in-patient rehabilitation in order to maximize patient's functional independence in activities of daily living, strength, ROM, and mobility.- Rehab Goal Patient has realistic goal of being discharged at assistance level 7-Ind to reside at Home with Fami ly/Relatives. MDM/PLAN: - Physical Therapy Need for home safety evaluation - to improve, our physical therapists will perform initial evaluatio n of pt's status upon admission and devise an individualized program for Home Evaluation Need in caregiver upon discharge - to improve, our physical therapists will perform initial evaluati on of pt's status upon admission and devise an individualized program for Caregiver Training New precaution - to improve, our physical therapists will perform initial evaluation of pt's status upon admission and devise an individualized program for Patient precaution education Edema - to improve, our physical therapists will perform initial evaluation of pt's status upon admi ssion and devise an individualized program for Elevation Training, and Lymphedema Therapy Poor balance - to improve, our physical therapists will perform initial evaluation of pt's status up on admission and devise an individualized program for Balance Training Poor endurance - to improve, our physical therapists will perform initial evaluation of pt's status upon admission and devise an individualized program for Endurance Training Achieving independence - to improve, our physical therapists will perform initial evaluation of pt's status upon admission and devise an individualized program for Community Reintegration Activities - Occupational Therapy Need for rn transitional care - to improve, our occupation therapists will perform initial evaluation of pt's status upon admission and devise an individualized program for Caregiver Training - Other See attached MAR (Medication Administration Record) - Diet Type Continue Regular - Diet - Liquid Texture Continue Regular - Tube Feed Continue N/A - Diet - Solid Texture Continue Regular - Shower allowing shower FUNCTIONAL STATUS: UPDATED AT WEEKLY TEAM CONFERENCE - Bladder Same accident frequency: 7-Ind - No accidents in the past 7 days - Bowel Same accident frequency: 7-Ind - No accidents in the past 7 days - Walking Same score based on distance walked: 0(N/A) - Wheelchair Same score based on distance traveled: 0(N/A) FUNCTIONAL STATUS: - Self-Care A. Eating Ind B. Grooming Pawan C. Bathing Gust[place] D. Dressing - Upper [place] E. Dressing - Lower modA F. Toileting [place] - Sphincter Control G. Bladder control Pawan H. Bowel control Pawan - Transfers Control I. Bed/Chair/Wheelchair [place] J. Toilet [place] K. Tub/Shower modA - Locomotion L. Walk/Wheelchair (B) Gust[place] M. Stairs maxA - Communication N. Comprehension (B) Ind O. Expression (B) Ind - Social Cognition P. Social Interaction Ind Q. Problem Solving Pawan R. Memory Ind - Endurance Good - Balance Good - Safety Awareness Good QI SCORES: - Self-Care A. Eating 03-Partial/moderate assistance B. Oral hygiene 03-Partial/moderate assistance C. Toileting hygiene 03-Partial/moderate assistance E. Shower/bathe self 03-Partial/moderate assistance F. Upper body dressing 03-Partial/moderate assistance G. Lower body dressing 03-Partial/moderate assistance H. Putting on/taking off footwear 03-Partial/moderate assistance - Mobility A. Roll left and right 03-Partial/moderate assistance B. Sit to lying 03-Partial/moderate assistance C. Lying to sitting on side of bed 03-Partial/moderate assistance D. Sit to stand 03-Partial/moderate assistance E. Chair/jyy-mc-lhjuy transfer 03-Partial/moderate assistance F. Toilet transfer 03-Partial/moderate assistance G. Car transfer 03-Partial/moderate assistance I. Walk 10 feet 03-Partial/moderate assistance J. Walk 50 feet with two turns 88-Not attempted due to medical condition or safety concerns K. Walk 150 feet 88-Not attempted due to medical condition or safety concerns L. Walking 10 feet on uneven surfaces 88-Not attempted due to medical condition or safety concerns M. 1 step (curb) 88-Not attempted due to medical condition or safety concerns N. 4 steps 88-Not attempted due to medical condition or safety concerns O. 12 steps 88-Not attempted due to medical condition or safety concerns P. Picking up object 88-Not attempted due to medical condition or safety concerns R. Wheel 50 feet with two turns 88-Not attempted due to medical condition or safety concerns S. Wheel 150 feet 88-Not attempted due to medical condition or safety concerns - Bladder and Bowel Bladder continence Bowel continence - Endurance Good - Balance Good - Safety Awareness Good CURRENT FUNC. DEFICITS: Self-Care and Mobility SIGNATURE PANEL: (MUSIC ADAPTER)
[2020-10-23] MEDS: ATORVASTATIN 80 MG TAB PO SCH (19:51)
[2020-10-23] MEDS: ACETAMINOPHEN 500 MG TAB PO PRN (19:52)
[2020-10-23] MEDS: TAMSULOSIN 0.4 MG SR CAP PO SCH (19:54)
[2020-10-23] MEDS: LORAZEPAM 0.5 MG TABLET PO PRN (19:54)
[2020-10-23] MEDS: MELATONIN 3 MG TABLET PO PRN (19:55)
--- NOTE | 2020-10-23 20:28 | P.PN ---
Subjective Date of Service: 10/23/20 Chief Complaint: FALLS OFTEN. DJD Subjective: Improving HE IS DECONDITIONED, HAS R HUMERUS FRACTURE AND ORHTO IS DOING CONSERVATIVE THERAPY. HE NEEDS TO BE TRAINED TO WALK AGAIN. COUGH TODAY. HE WAS COVID NEG. MR FIGUEROA IS DOING GOOD. THEY FOUND LISTERINE BOTTLE FULL OF WHISKEY FROM HIS ROOM. FEELS WELL. NO PAIN. ULCER L SIDE LEG. DRY. Review of Systems 10-point ROS is otherwise unremarkable Physical Examination - Vital Signs Temperature: 98.2 F Blood Pressure: 142/77 Pulse: 58 Respirations: 18 Pulse Ox (%): 98 - Physical Exam General: Alert, Other HEENT: Atraumatic, PERRLA, EOMI Neck: Supple, JVD not distended Respiratory: Clear to auscultation bilaterally, Normal air movement Cardiovascular: Regular rate/rhythm, Normal S1 S2 Gastrointestinal: Normal bowel sounds, No tenderness Musculoskeletal: No tenderness Integumentary: No rashes Neurological: Normal speech, Normal tone, Normal affect Lymphatics: No axilla or inguinal lymphadenopathy - Studies Medications List Reviewed: Yes Assessment And Plan - Current Problems (Diagnosis) (1) Risk for falls Current Visit: Yes Status: Acute Plan: HE IS DEBILITATED. LIVES WITH . NOT ABLE TO AMBULATE NEEDS TO BE TRAINED WITH WALKER AND DISABLED RIGHT ARM. (2) Hypertension Current Visit: No Status: Chronic Qualifiers: Hypertension type: essential hypertension Qualified Code(s): I10 - Essential (primary) hypertension (3) Osteoarthritis Current Visit: No Status: Chronic Qualifiers: Osteoarthritis location: multiple joints (4) Right humeral fracture Current Visit: Yes Status: Acute Plan: HE ALREADY HAS BEEN SEEN BY ORTHO MD. 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 WORKING WELL SO FAR THIS IS A CHRONIC ISSUE. (6) Cough Current Visit: Yes Status: Acute Plan: MANDY DM. IF NEED WILL DO FU CXR.
[2020-10-24] MEDS: POTASSIUM CL ER 10 MEQ TABLET PO SCH (08:19)
[2020-10-24] MEDS: THIAMINE HCL 100 MG TABLET PO SCH (08:19)
[2020-10-24] MEDS: CITRACAL SLOW PO SCH (08:19)
[2020-10-24] MEDS: ASPIRIN EC 81 MG TAB PO SCH (08:19)
[2020-10-24] MEDS: JUVEN PACKET PO SCH ×2 (08:19→20:00)
[2020-10-24] MEDS: CIPROFLOXACIN HCL 500 MG TAB PO SCH ×2 (08:19→20:00)
[2020-10-24] MEDS: AMIODARONE HCL 200 MG TAB PO SCH (08:19)
[2020-10-24] MEDS: allopurinoL 300 MG TAB PO SCH (08:19)
[2020-10-24] MEDS: MULTIVIT W/ MINERAL TAB PO SCH (08:19)
[2020-10-24] MEDS: FOLIC ACID 1 MG TABLET PO SCH (08:20)
[2020-10-24] MEDS: METOPROLOL TAR 25 MG TAB PO SCH ×3 (08:20→20:01)
[2020-10-24] MEDS: DOCUSATE NA 100 MG CAP PO SCH (08:25)
[2020-10-24] MEDS: NICOTINE 14 MG/PAT TD SCH (10:58)
[2020-10-24] MEDS: LIDOCAINE 4% PATCH TOP SCH (14:51)
[2020-10-24] MEDS: BISACODYL 10 MG RECTAL SUPP PR PRN (15:48)
[2020-10-24] MEDS: ENOXAPARIN 30 MG/0.3 ML SQ SCH (16:48)
[2020-10-24] MEDS: MAGNESIUM HYDROXIDE 8% 30 ML PO PRN (16:52)
--- NOTE | 2020-10-24 17:51 | R.PN ---
PROGRESS NOTES ENCOUNTER DATE AND TIME: 10/24/2020 17:48 (PUBLIC RELATIONS INTERN) NAME TABATHA BELTRE DATE OF : 1940 DATE OF ADMISSION: 10/19/2020 13:06 (PUBLIC RELATIONS INTERN) FX SHOULDER, DEBILITATEDCHIEF COMPLAINT: Shoulder fracture and debility SUBJECTIVE: Pt denied any depression. Pt denied any Shortness of Breath. Ambulated 560' with contact guard to standby assistance. WBC 5.3, Hgb 11.2, [place] Layer 1.82, prealbumin 18.7. The patient had a Listerine bottle containing whiskey. The bottle was confiscated. LFTs showed mildly elevated AST of 78 and alkaline phosphatase of 156. Ambulated 300' and 350' with standby assistance using a rolling walker. VITAL SIGNS Temperature: 98.1 F SBP/DBP: 112/56 Pulse: 59 Resp: 16 MEDICATION ALLERGIES: No Known Drug Allergies (NKDA) ENVIRONMENTAL ALLERGIES: - Substance Allergies None Known - Other Allergies None Known NURSING: - Shower allowing shower ACTIVITIES OOB only with supervision THERAPIES: - Dietary and Nutrition Adequate Nutrition. Nutritional Education. Nutritional Supplements. PHYSICAL EXAM - Gen Patient sitting in wheelchair - Skin Left more than right leg skin desquamation and hyperemic left leg cellulitis Normacephalic - Eyes No abnormalities - ENMT No abnormalities - Neck No abnormalities - CVS RRR - Chest No abnormalities - Resp No wheezing - Abd Soft - GI Non distended No abnormalities - Frequent urination due to prostate cancer - Ext Moderate edema in both lower extremities. - MSK 4+/5 weakness in both lower extremities. - Neuro No focal deficits - Psych No abnormalities ASSESSMENT: Pt. is a 80 yo Right-handed male of unknown race.On 10/18/2020 he was admitted to [facility] with diagnosis FX SHOULDER, DEBILITATED.His impairment category is Debility 16 - Debility (16). Pre-morbidly, Pt. was independent/mod-I in Self-Care, Communication, and Social Cognition; and he had good Locomotion, Transfers Control, Sphincter Control, and Social Cognition.Currently, he has defici ts of Locomotion, Balance, Safety Awareness, Sphincter Control, and Endurance.Pt. is now referred to [facility] for acute in-patient rehabilitation in order to maximize patient's functional independence in activities of daily living, strength, ROM, and mobility.- Rehab Goal Patient has realistic goal of being discharged at assistance level 7-Ind to reside at Home with Fami ly/Relatives. MDM/PLAN: - Physical Therapy Need for home safety evaluation - to improve, our physical therapists will perform initial evaluatio n of pt's status upon admission and devise an individualized program for Home Evaluation Need in caregiver upon discharge - to improve, our physical therapists will perform initial evaluati on of pt's status upon admission and devise an individualized program for Caregiver Training New precaution - to improve, our physical therapists will perform initial evaluation of pt's status upon admission and devise an individualized program for Patient precaution education Edema - to improve, our physical therapists will perform initial evaluation of pt's status upon admi ssion and devise an individualized program for Elevation Training, and Lymphedema Therapy Poor balance - to improve, our physical therapists will perform initial evaluation of pt's status up on admission and devise an individualized program for Balance Training Poor endurance - to improve, our physical therapists will perform initial evaluation of pt's status upon admission and devise an individualized program for Endurance Training Achieving independence - to improve, our physical therapists will perform initial evaluation of pt's status upon admission and devise an individualized program for Community Reintegration Activities - Occupational Therapy Need for intensive care medicine specialist - to improve, our occupation therapists will perform initial evaluation of pt's status upon admission and devise an individualized program for Caregiver Training - Other See attached MAR (Medication Administration Record) - Diet Type Continue Regular - Diet - Liquid Texture Continue Regular - Tube Feed Continue N/A - Diet - Solid Texture Continue Regular - Shower allowing shower FUNCTIONAL STATUS: UPDATED AT WEEKLY TEAM CONFERENCE - Bladder Same accident frequency: 7-Ind - No accidents in the past 7 days - Bowel Same accident frequency: 7-Ind - No accidents in the past 7 days - Walking Same score based on distance walked: 0(N/A) - Wheelchair Same score based on distance traveled: 0(N/A) FUNCTIONAL STATUS: - Self-Care A. Eating Ind B. Grooming Pawan C. Bathing [place] D. Dressing - Upper Gustabo E. Dressing - Lower modA F. Toileting [place] - Sphincter Control G. Bladder control Pawan H. Bowel control Pawan - Transfers Control I. Bed/Chair/Wheelchair [place] J. Toilet [place] K. Tub/Shower modA - Locomotion L. Walk/Wheelchair (B) [place] M. Stairs maxA - Communication N. Comprehension (B) Ind O. Expression (B) Ind - Social Cognition P. Social Interaction Ind Q. Problem Solving Pawan R. Memory Ind - Endurance Good - Balance Good - Safety Awareness Good QI SCORES: - Self-Care A. Eating 03-Partial/moderate assistance B. Oral hygiene 03-Partial/moderate assistance C. Toileting hygiene 03-Partial/moderate assistance E. Shower/bathe self 03-Partial/moderate assistance F. Upper body dressing 03-Partial/moderate assistance G. Lower body dressing 03-Partial/moderate assistance H. Putting on/taking off footwear 03-Partial/moderate assistance - Mobility A. Roll left and right 03-Partial/moderate assistance B. Sit to lying 03-Partial/moderate assistance C. Lying to sitting on side of bed 03-Partial/moderate assistance D. Sit to stand 03-Partial/moderate assistance E. Chair/sam-lo-ixyth transfer 03-Partial/moderate assistance F. Toilet transfer 03-Partial/moderate assistance G. Car transfer 03-Partial/moderate assistance I. Walk 10 feet 03-Partial/moderate assistance J. Walk 50 feet with two turns 88-Not attempted due to medical condition or safety concerns K. Walk 150 feet 88-Not attempted due to medical condition or safety concerns L. Walking 10 feet on uneven surfaces 88-Not attempted due to medical condition or safety concerns M. 1 step (curb) 88-Not attempted due to medical condition or safety concerns N. 4 steps 88-Not attempted due to medical condition or safety concerns O. 12 steps 88-Not attempted due to medical condition or safety concerns P. Picking up object 88-Not attempted due to medical condition or safety concerns R. Wheel 50 feet with two turns 88-Not attempted due to medical condition or safety concerns S. Wheel 150 feet 88-Not attempted due to medical condition or safety concerns - Bladder and Bowel Bladder continence Bowel continence - Endurance Good - Balance Good - Safety Awareness Good CURRENT FUNC. DEFICITS: Self-Care and Mobility SIGNATURE PANEL: (PUBLIC RELATIONS INTERN)
--- NOTE | 2020-10-24 17:59 | PAPE ---
POST ADMISSION PHYSICIAN EVALUATION PATIENT: [facility] MR# [id number] REFERRING DOCTOR LARON RHOADES EVALUATION DATE AND TIME 10/19/2020 13:19 (CLAMMER) NAME TABATHA BELTRE DATE OF 1940 AGE 80 PHONE SSN# [id number] GENDER male EVALUATING PHYSICIAN Dr. Mitchel Nieves M.D. ADMISSION DIAGNOSIS: FX SHOULDER, DEBILITATED ONSET DATE 10/18/2020 POST-ADMISSION FUNCTIONAL/MEDICAL STATUS: - Bladder Same accident frequency: Ind - No accidents in the past 7 days - Bowel Same accident frequency: Ind - No accidents in the past 7 days - Walking Same score based on distance walked: 0(N/A) - Wheelchair Same score based on distance traveled: 0(N/A) STATUS CHANGE EVALUATION: No change in Functional or Medical Status is identified compared with Pre-Admission screening. PATIENT NEEDS CLOSE MEDICAL SUPERVISION BY A REHABILITATION PHYSICIAN FOR: Coordination of Treatment Team PATIENT REQUIRES 24X7 REHAB NURSING FOR MEDICAL AND FUNCTIONAL MGT. OF THE FOLLOWING DEFICITS: Disease Management Medication Management Patient/Family Education Providing Safe Environment PATIENT REQUIRES INTENSIVE, COORDINATED INTERDISCIPLINARY APPROACH TO REHAB: Arranging Home Equipment/Services Discharge Planning Family Intervention/Training Monogram Operator/Case Management LIST OF IDENTIFIED AND POTENTIAL PROBLEMS: Alteration in leisure activities Bladder, Incontinence Bowel, Incontinence Infection, Actual or Potential Mobility Impaired Pain, Alteration in Comfort Self Care Deficit Skin Integrity, Actual or Potential Urinary Tract Infection (UTI), Actual or Potential PATIENT COULD BE AT RISK FOR COMPLICATIONS FROM ADVERSE MEDICAL CONDITIONS DUE TO HIS/HER COMORBIDITI ES AND THE RIGORS OF THE INTENSIVE REHABILLITATION PROGRAM. METHODS OR INTERVENTIONS TO AVOID COMPLIC ATIONS INCLUDE: - Infection Clinical staff to assess and manage the signs and symptoms of infection including fever, redness, war mth, etc. - Urinary Tract Infection - Falls Patient will be evaluated for Fall Precautions and will be placed on Fall Precautions as indicated pe r protocol. - Skin Breakdown Nursing will assess skin daily using assessment tool and will place on Skin Breakdown Precautions as indicated per protocol. - Pain Clinical staff may employ non-medication methods such as massage, distraction, decrease stimulus, etc . as needed. Clinical staff will assess patient's pain level every shift per protocol to assess and e nsure pain management effectiveness. Medications will be given and the pain level re-assessed. PRELIMINARY PLAN OF CARE: - Physical Therapy Patient needs Physical Therapy for a daily minimum of 1.5 hours at least 5 out of 7 days, to improve: Mobility, Strengthening, Transfers, Stretching, ROM, Endurance, Ability to manage stairs, Gait, and Balance. - Speech Therapy Patient needs Speech Therapy for a daily minimum of 0.5 hours at least 5 out of 7 days, to improve: S wallowing, Cognition, Language Skills, and Compensatory Strategies. - Rehabilitation Nursing Patient requires 24x7 Rehabilitation Nursing for: Pain Issues, Identifying and preventing risk factor s, Monitoring and reporting current medical conditions, Assisting with ambulation and transfer, Caleb ting with all ADL-s, Teaching patients about disease process and medications, Family teaching, Provid ing safe environment, Bowel and Bladder Issues, Skin Integrity, and Medication Management. Patient needs Monogram Operator and/or Case Management for: Discharge Planning, Arranging Home Equipmen t or Services, and Family Interventions. - Dietary and Nutrition Services Patient needs Dietary and Nutrition Services for: Adequate Nutrition, Nutritional Supplements, and Nu tritional Education. - Occupational Therapy Patient needs Occupational Therapy for a daily minimum of 1.5 hours at least 5 out of 7 days, to impr ove Activities of Daily Living, including: Eating, Grooming, Bathing, Dressing, Toileting, Toilet Tra nsfers, Community Reintegration, Higher functional activities, Adaptive Equipment, Splinting, Househo ld Tasks, and Other activities as determined. QI SCORES: - Self-Care A. Eating 03-Partial/moderate assistance B. Oral hygiene 03-Partial/moderate assistance C. Toileting hygiene 03-Partial/moderate assistance E. Shower/bathe self 03-Partial/moderate assistance F. Upper body dressing 03-Partial/moderate assistance G. Lower body dressing 03-Partial/moderate assistance H. Putting on/taking off footwear 03-Partial/moderate assistance - Mobility A. Roll left and right 03-Partial/moderate assistance B. Sit to lying 03-Partial/moderate assistance C. Lying to sitting on side of bed 03-Partial/moderate assistance D. Sit to stand 03-Partial/moderate assistance E. Chair/gwl-zg-hxyfr transfer 03-Partial/moderate assistance F. Toilet transfer 03-Partial/moderate assistance G. Car transfer 03-Partial/moderate assistance I. Walk 10 feet 03-Partial/moderate assistance J. Walk 50 feet with two turns 88-Not attempted due to medical condition or safety concerns K. Walk 150 feet 88-Not attempted due to medical condition or safety concerns L. Walking 10 feet on uneven surfaces 88-Not attempted due to medical condition or safety concerns M. 1 step (curb) 88-Not attempted due to medical condition or safety concerns N. 4 steps 88-Not attempted due to medical condition or safety concerns O. 12 steps 88-Not attempted due to medical condition or safety concerns P. Picking up object 88-Not attempted due to medical condition or safety concerns R. Wheel 50 feet with two turns 88-Not attempted due to medical condition or safety concerns S. Wheel 150 feet 88-Not attempted due to medical condition or safety concerns - Bladder and Bowel Bladder continence Bowel continence - Endurance Good - Balance Good - Safety Awareness Good POTENTIAL FUNCTIONAL GOALS FOR PATIENT TO ACHIEVE BY DISCHARGE: - Safety Precaution Patient will remain free from falls or injury at time of discharge. - Bed Mobility Patient will perform bed mobility at 4-Gustabo level of assistance. - Transfers Patient will complete transfers from bed to chair at 4-Gustabo level of assistance. - Mobility Patient will ambulate 150 ft with 4-Gustabo level of assistance with RW. PATIENT REHAB POTENTIAL Warren BELTRE is able and expected to receive 3 hours of individualized therapy daily on at least 5 of every 7 days Warren BELTRE's prognosis for significant practical improvement within a reasonable period of time appe ars Good Expected level of measurable improvement will be of a practical value to Warren BELTRE's functional cap acity or adaptations to impairments Has a viable Discharge Plan Medically appropriate; condition is sufficiently stable to participate in intensive rehab program DISCHARGE PLAN: - Estimated Length of Stay (days) 13. - Consensus on plan Discharge plan has been discussed with primary caregiver. Patient/Family is in agreement with the jeffrey n. Primary caregiver is in agreement with the plan. - Patient/Family Goals Return home independently. - Planned Living Setting Upon Discharge Home, to live with Family/Relatives. Transitional Living. CONCLUSION ON REHABILITATION NECESSITY: I have evaluated patient's pre-admission functional status and, comparing it to the patient's post-ad mission functional status now, I conclude that the pre-admission assessment was accurate. Patient's c ondition on admission supports the medical necessity of admission to [facility]. It is safe to proceed with patient's therapy program. SIGNATURE PANEL: (CLAMMER)
[2020-10-24] MEDS: ACETAMINOPHEN 500 MG TAB PO PRN (20:00)
[2020-10-24] MEDS: ATORVASTATIN 80 MG TAB PO SCH (20:01)
[2020-10-24] MEDS: TAMSULOSIN 0.4 MG SR CAP PO SCH (20:01)
[2020-10-24] MEDS: MELATONIN 3 MG TABLET PO PRN (20:02)
[2020-10-24] MEDS ORDERED: POLYETHYL GLY 3350 17 GM/DOSE PO PRN (20:59)
[2020-10-24] MEDS: LORAZEPAM 0.5 MG TABLET PO PRN (21:27)
[2020-10-25 06:34] LABS: Absolute Lymphocytes (CBC) 1.6 K/uL (0.7-4.9); Basophils % 0.8 % (0-1.3); Hematocrit 30.8 % (39.6-49.0); Lymphocytes % 27.7 % (15.3-44.8); MPV 9.9 fL (7.6-11.3); RBC Red Blood Cell Count 3.01 M/uL (4.33-5.43)
[2020-10-25 07:01] LABS: Albumin 2.8 g/dL (3.4-5.0); Magnesium 2.8 mg/dL (1.8-2.4); Potassium 4.1 mmol/L (3.5-5.1); Prealbumin 23.1 mg/dL (20-40)
[2020-10-25] MEDS: NICOTINE 14 MG/PAT TD SCH (08:50)
[2020-10-25] MEDS: LIDOCAINE 4% PATCH TOP SCH (08:50)
[2020-10-25] MEDS: ACETAMINOPHEN 500 MG TAB PO PRN ×3 (08:51→23:28)
[2020-10-25] MEDS: THIAMINE HCL 100 MG TABLET PO SCH (08:52)
[2020-10-25] MEDS: allopurinoL 300 MG TAB PO SCH (08:52)
[2020-10-25] MEDS: DOCUSATE NA 100 MG CAP PO SCH (08:52)
[2020-10-25] MEDS: ASPIRIN EC 81 MG TAB PO SCH (08:52)
[2020-10-25] MEDS: CIPROFLOXACIN HCL 500 MG TAB PO SCH ×2 (08:52→19:29)
[2020-10-25] MEDS: MULTIVIT W/ MINERAL TAB PO SCH (08:52)
[2020-10-25] MEDS: METOPROLOL TAR 25 MG TAB PO SCH ×2 (08:53→19:29)
[2020-10-25] MEDS: AMIODARONE HCL 200 MG TAB PO SCH (08:53)
[2020-10-25] MEDS: FOLIC ACID 1 MG TABLET PO SCH (08:53)
[2020-10-25] MEDS: JUVEN PACKET PO SCH ×2 (09:00→19:30)
[2020-10-25] MEDS: POTASSIUM CL ER 10 MEQ TABLET PO SCH (12:12)
[2020-10-25] MEDS: CITRACAL SLOW PO SCH (12:12)
[2020-10-25] MEDS: ENOXAPARIN 30 MG/0.3 ML SQ SCH (16:22)
[2020-10-25] MEDS: LORAZEPAM 0.5 MG TABLET PO PRN (19:28)
[2020-10-25] MEDS: TAMSULOSIN 0.4 MG SR CAP PO SCH (19:28)
[2020-10-25] MEDS: ATORVASTATIN 80 MG TAB PO SCH (19:29)
[2020-10-25] MEDS: MELATONIN 3 MG TABLET PO PRN (19:29)
[2020-10-25] MEDS: GABAPENTIN 100 MG CAP PO SCH (19:43)
--- NOTE | 2020-10-25 21:13 | P.PN ---
Subjective Date of Service: 10/25/20 Chief Complaint: FALLS OFTEN. DJD Subjective: Improving HE IS DECONDITIONED, HAS R HUMERUS FRACTURE AND ORHTO IS DOING CONSERVATIVE THERAPY. HE NEEDS TO BE TRAINED TO WALK AGAIN. COUGH TODAY. HE WAS COVID NEG. MR FIGUEROA IS DOING GOOD. THEY FOUND LISTERINE BOTTLE FULL OF WHISKEY FROM HIS ROOM. FEELS WELL. NO PAIN. ULCER L SIDE LEG. DRY. HE HAS THIGH AND LEG PAIN. Review of Systems 10-point ROS is otherwise unremarkable Physical Examination - Vital Signs Temperature: 97.6 F Blood Pressure: 131/55 Pulse: 60 Respirations: 18 Pulse Ox (%): 99 - Physical Exam General: Mild distress, Obese HEENT: Atraumatic, PERRLA, EOMI Neck: Supple, JVD not distended Respiratory: Clear to auscultation bilaterally, Normal air movement Cardiovascular: Regular rate/rhythm, Normal S1 S2, Edema (L AND DRY ULCERS NOW.) Gastrointestinal: Normal bowel sounds, No tenderness Musculoskeletal: No tenderness Integumentary: No rashes Neurological: Normal speech, Normal tone, Normal affect Lymphatics: No axilla or inguinal lymphadenopathy - Studies Laboratory Data (last 24 hrs) 10/25/20 06:16: Sodium 139, Potassium 4.1, BUN 38 H, Creatinine 1.55 H, Glucose 102, Magnesium 2.8 H D 10/25/20 06:16: WBC 5.6, Hgb 10.3 L, Hct 30.8 L, Plt Count 145 L Medications List Reviewed: Yes Assessment And Plan - Current Problems (Diagnosis) (1) Risk for falls Current Visit: Yes Status: Acute Plan: HE IS DEBILITATED. LIVES WITH . NOT ABLE TO AMBULATE NEEDS TO BE TRAINED WITH WALKER AND DISABLED RIGHT ARM. (2) Hypertension Current Visit: No Status: Chronic Qualifiers: Hypertension type: essential hypertension Qualified Code(s): I10 - Essential (primary) hypertension (3) Osteoarthritis Current Visit: No Status: Chronic Qualifiers: Osteoarthritis location: multiple joints (4) Right humeral fracture Current Visit: Yes Status: Acute Plan: HE ALREADY HAS BEEN SEEN BY ORTHO MD. 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 WORKING WELL SO FAR THIS IS A CHRONIC ISSUE. (6) Cough Current Visit: Yes Status: Acute Plan: MANDY DM. IF NEED WILL DO FU CXR. (7) Lumbar radicular pain Current Visit: Yes Status: Chronic Plan: GABAPENTIN QHS.
[2020-10-26] MEDS: JUVEN PACKET PO SCH ×2 (08:30→20:00)
[2020-10-26] MEDS: ASPIRIN EC 81 MG TAB PO SCH (08:30)
[2020-10-26] MEDS: CITRACAL SLOW PO SCH (08:30)
[2020-10-26] MEDS: POTASSIUM CL ER 10 MEQ TABLET PO SCH (08:30)
[2020-10-26] MEDS: FOLIC ACID 1 MG TABLET PO SCH (08:30)
[2020-10-26] MEDS: allopurinoL 300 MG TAB PO SCH (08:31)
[2020-10-26] MEDS: MULTIVIT W/ MINERAL TAB PO SCH (08:31)
[2020-10-26] MEDS: AMIODARONE HCL 200 MG TAB PO SCH (08:31)
[2020-10-26] MEDS: METOPROLOL TAR 25 MG TAB PO SCH ×2 (08:31→21:59)
[2020-10-26] MEDS: THIAMINE HCL 100 MG TABLET PO SCH (08:31)
[2020-10-26] MEDS: DOCUSATE NA 100 MG CAP PO SCH (08:31)
[2020-10-26] MEDS: NICOTINE 14 MG/PAT TD SCH (09:13)
[2020-10-26] MEDS: LIDOCAINE 4% PATCH TOP SCH (09:15)
--- NOTE | 2020-10-26 10:02 | P.RH.PN ---
Vital Signs: Last Vital Signs Temp 98.3 F 10/26/20 08:00 Pulse 56 10/26/20 08:31 Resp 16 10/26/20 08:00 BP 146/61 H 10/26/20 08:31 Pulse Ox 99 10/26/20 08:00 Laboratory: Laboratory Last Values WBC 5.6 K/uL (4.3-10.9) 10/25/20 06:16 RBC 3.01 M/uL (4.33-5.43) L 10/25/20 06:16 Hgb 10.3 g/dL (13.6-17.9) L 10/25/20 06:16 Hct 30.8 % (39.6-49.0) L 10/25/20 06:16 MCV 102.4 fL (80-100) H 10/25/20 06:16 MCH 34.2 pg (27.0-35.0) 10/25/20 06:16 MCHC 33.4 g/dL (32.0-36.0) 10/25/20 06:16 RDW 16.9 % (12.1-15.2) H 10/25/20 06:16 Plt Count 145 K/uL (152-406) L 10/25/20 06:16 MPV 9.9 fL (7.6-11.3) 10/25/20 06:16 Neutrophils % 54.8 % (41.7-73.7) 10/25/20 06:16 Lymphocytes % 27.7 % (15.3-44.8) 10/25/20 06:16 Monocytes % 13.4 % (3.3-12.3) H 10/25/20 06:16 Eosinophils % 3.3 % (0-4.4) 10/25/20 06:16 Basophils % 0.8 % (0-1.3) 10/25/20 06:16 Absolute Neutrophils 3.1 K/uL (1.8-8.0) 10/25/20 06:16 Absolute Lymphocytes 1.6 K/uL (0.7-4.9) 10/25/20 06:16 Absolute Monocytes 0.8 K/uL (0.1-1.3) 10/25/20 06:16 Absolute Eosinophils 0.2 K/uL (0-0.5) 10/25/20 06:16 Absolute Basophils 0.0 K/uL (0-0.5) 10/25/20 06:16 Sodium 139 mmol/L (136-145) 10/25/20 06:16 Potassium 4.1 mmol/L (3.5-5.1) 10/25/20 06:16 Chloride 104 mmol/L (98-107) 10/25/20 06:16 Carbon Dioxide 31 mmol/L (21-32) 10/25/20 06:16 BUN 38 mg/dL (7-18) H 10/25/20 06:16 Creatinine 1.55 mg/dL (0.55-1.3) H 10/25/20 06:16 Estimated GFR 43 mL/min (=/>90) L 10/25/20 06:16 Glucose 102 mg/dL (74-106) 10/25/20 06:16 Calcium 9.2 mg/dL (8.5-10.1) 10/25/20 06:16 Magnesium 2.8 mg/dL (1.8-2.4) H D 10/25/20 06:16 Total Bilirubin 0.8 mg/dL (0.2-1.0) 10/22/20 14:16 Direct Bilirubin 0.1 mg/dL (0-0.2) 10/22/20 14:16 AST 78 U/L (15-37) H 10/22/20 14:16 ALT 23 U/L (12-78) 10/22/20 14:16 Alkaline Phosphatase 156 U/L (45-117) H 10/22/20 14:16 Serum Total Protein 7.4 g/dL (6.4-8.2) 10/22/20 14:16 Albumin 2.8 g/dL (3.4-5.0) L 10/25/20 06:16 Globulin 4.5 g/dL (2.3-3.5) H 10/22/20 14:16 Albumin/Globulin Ratio 0.6 (1.1-1.8) L 10/22/20 14:16 Prealbumin 23.1 mg/dL (20-40) 10/25/20 06:16 Urine Color Yellow 10/19/20 13:30 Urine Appearance Clear 10/19/20 13:30 Urine pH 6.5 (5.0-7.0) 10/19/20 13:30 Ur Specific [place] 1.010 (1.005-1.030) 10/19/20 13:30 Glucose (UA)(Auto) Negative (NEG) 10/19/20 13:30 Urine Ketones Negative (NEG) 10/19/20 13:30 Urine Blood Negative (NEG) 10/19/20 13:30 Urine Nitrite Negative (NEG) 10/19/20 13:30 Urine Bilirubin Negative (NEG) 10/19/20 13:30 Urine Urobilinogen 0.2 mg/dL (0.2-1.0) 10/19/20 13:30 Ur Leukocyte Esterase Negative (NEG) 10/19/20 13:30 Urine RBC None seen /HPF (NONE SEEN) 10/19/20 13:30 Urine WBC <5 /HPF (<5) 10/19/20 13:30 Ur Squamous Epith Cells <5 /HPF (NONE SEEN) 10/19/20 13:30 Urine Bacteria <20 /HPF (NONE SEEN) 10/19/20 13:30 Hyaline Casts 0-5 /LPF (NONE SEEN) 10/19/20 13:30 Urine Culture Reflexed Not needed 10/19/20 13:30 Urine Total Protein Negative (NEG) 10/19/20 13:30 Plasma/Serum Alcohol < 10 mg/dL (<10) 10/22/20 18:03 SARS-CoV-2 RNA (RT-PCR) Negative (NEGATIVE) 10/19/20 12:45 Weight: 213 lb Closed Surgical Incision Present: No Negative Pressure Wound Therapy Present: No Physician Update: Walking 150 to 200' standby assistance. His pain is well managed. His left leg is still weeping and managed by wound care. Labs reviewed. Functional Improvement: pt is demonstrating progress with his physical therapy. pt has improved his tolerance to functional activity as well as functional balance. Skilled PT services continue to be necessary to enhance functional independence and safety. Summary: Patient's care plan and intermediate accountant goals have been reviewed and revised as necessary. Please see the Rehabilitation Signature page for all necessary signatures.
--- NOTE | 2020-10-26 15:34 | P.PN ---
Subjective Date of Service: 10/26/20 Chief Complaint: FALLS OFTEN. DJD Subjective: Improving HE IS DECONDITIONED, HAS R HUMERUS FRACTURE AND ORHTO IS DOING CONSERVATIVE THERAPY. HE NEEDS TO BE TRAINED TO WALK AGAIN. COUGH TODAY. HE WAS COVID NEG. MR FIGUEROA IS DOING GOOD. THEY FOUND LISTERINE BOTTLE FULL OF WHISKEY FROM HIS ROOM. FEELS WELL. NO PAIN. ULCER L SIDE LEG. DRY. HE HAS THIGH AND LEG PAIN. HE IS STABLE. HAS NO FEVER. HIS PAIN IS L THIGH PAIN AND IT IS BETTER. Review of Systems 10-point ROS is otherwise unremarkable General: Weakness Physical Examination - Vital Signs Temperature: 98.3 F Blood Pressure: 146/61 Pulse: 56 Respirations: 16 Pulse Ox (%): 99 - Physical Exam General: Mild distress, Obese HEENT: Atraumatic, PERRLA, EOMI Neck: Supple, JVD not distended Respiratory: Clear to auscultation bilaterally, Normal air movement Cardiovascular: Regular rate/rhythm, Normal S1 S2 Gastrointestinal: Normal bowel sounds, No tenderness Musculoskeletal: No tenderness Integumentary: No rashes Neurological: Normal speech, Normal tone, Normal affect Lymphatics: No axilla or inguinal lymphadenopathy - Studies Medications List Reviewed: Yes Assessment And Plan - Current Problems (Diagnosis) (1) Risk for falls Current Visit: Yes Status: Acute Plan: HE IS DEBILITATED. LIVES WITH . NOT ABLE TO AMBULATE NEEDS TO BE TRAINED WITH WALKER AND DISABLED RIGHT ARM. (2) Hypertension Current Visit: No Status: Chronic Qualifiers: Hypertension type: essential hypertension Qualified Code(s): I10 - Essential (primary) hypertension (3) Osteoarthritis Current Visit: No Status: Chronic Qualifiers: Osteoarthritis location: multiple joints (4) Right humeral fracture Current Visit: Yes Status: Acute Plan: HE ALREADY HAS BEEN SEEN BY ORTHO MD. 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 WORKING WELL SO FAR THIS IS A CHRONIC ISSUE. (6) Cough Current Visit: Yes Status: Acute Plan: MANDY DM. IF NEED WILL DO FU CXR. (7) Lumbar radicular pain Current Visit: Yes Status: Chronic Plan: GABAPENTIN QHS.
[2020-10-26] MEDS: ENOXAPARIN 30 MG/0.3 ML SQ SCH (17:17)
[2020-10-26] MEDS: GABAPENTIN 100 MG CAP PO SCH (21:00)
[2020-10-26] MEDS: ATORVASTATIN 80 MG TAB PO SCH (21:57)
[2020-10-26] MEDS: MELATONIN 3 MG TABLET PO PRN (21:58)
[2020-10-26] MEDS: TAMSULOSIN 0.4 MG SR CAP PO SCH (21:58)
[2020-10-27] MEDS: ACETAMINOPHEN 500 MG TAB PO PRN ×3 (03:50→20:12)
[2020-10-27] MEDS: JUVEN PACKET PO SCH ×2 (08:00→20:00)
[2020-10-27] MEDS: LIDOCAINE 4% PATCH TOP SCH (09:02)
[2020-10-27] MEDS: ASPIRIN EC 81 MG TAB PO SCH (09:04)
[2020-10-27] MEDS: MULTIVIT W/ MINERAL TAB PO SCH (09:05)
[2020-10-27] MEDS: AMIODARONE HCL 200 MG TAB PO SCH (09:05)
[2020-10-27] MEDS: allopurinoL 300 MG TAB PO SCH (09:05)
[2020-10-27] MEDS: FOLIC ACID 1 MG TABLET PO SCH (09:06)
[2020-10-27] MEDS: THIAMINE HCL 100 MG TABLET PO SCH (09:06)
[2020-10-27] MEDS: DOCUSATE NA 100 MG CAP PO SCH (09:07)
[2020-10-27] MEDS: NICOTINE 14 MG/PAT TD SCH (09:08)
[2020-10-27] MEDS: METOPROLOL TAR 25 MG TAB PO SCH ×2 (09:13→20:11)
[2020-10-27] MEDS: CITRACAL SLOW PO SCH (12:17)
[2020-10-27] MEDS: POTASSIUM CL ER 10 MEQ TABLET PO SCH (12:18)
--- NOTE | 2020-10-27 14:51 | P.PN ---
Subjective Date of Service: 10/27/20 Chief Complaint: FALLS OFTEN. DJD Subjective: Improving HE IS DECONDITIONED, HAS R HUMERUS FRACTURE AND ORHTO IS DOING CONSERVATIVE THERAPY. HE NEEDS TO BE TRAINED TO WALK AGAIN. COUGH TODAY. HE WAS COVID NEG. MR FIGUEROA IS DOING GOOD. THEY FOUND LISTERINE BOTTLE FULL OF WHISKEY FROM HIS ROOM. FEELS WELL. NO PAIN. ULCER L SIDE LEG. DRY. HE HAS THIGH AND LEG PAIN. HE IS STABLE. HAS NO FEVER. HIS PAIN IS L THIGH PAIN AND IT IS BETTER. HIS LEG PAIN IS LESSER NOW. Review of Systems 10-point ROS is otherwise unremarkable Physical Examination - Vital Signs Temperature: 98.5 F Blood Pressure: 131/58 Pulse: 56 Respirations: 16 Pulse Ox (%): 98 - Physical Exam General: Mild distress HEENT: Atraumatic, PERRLA, EOMI Neck: Supple, JVD not distended Respiratory: Clear to auscultation bilaterally, Normal air movement Cardiovascular: Regular rate/rhythm, Normal S1 S2 Gastrointestinal: Normal bowel sounds, No tenderness Musculoskeletal: No tenderness Integumentary: No rashes Neurological: Normal speech, Normal tone, Normal affect Lymphatics: No axilla or inguinal lymphadenopathy - Studies Microbiology Data (last 24 hrs): 10/26/20 11:50 Nasopharnyx Coronavirus COVID-19 PCR - Final Medications List Reviewed: Yes Assessment And Plan - Current Problems (Diagnosis) (1) Risk for falls Current Visit: Yes Status: Acute Plan: HE IS DEBILITATED. LIVES WITH . NOT ABLE TO AMBULATE NEEDS TO BE TRAINED WITH WALKER AND DISABLED RIGHT ARM. (2) Hypertension Current Visit: No Status: Chronic Qualifiers: Hypertension type: essential hypertension Qualified Code(s): I10 - Essential (primary) hypertension (3) Osteoarthritis Current Visit: No Status: Chronic Qualifiers: Osteoarthritis location: multiple joints (4) Right humeral fracture Current Visit: Yes Status: Acute Plan: HE ALREADY HAS BEEN SEEN BY ORTHO MD. 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 WORKING WELL SO FAR THIS IS A CHRONIC ISSUE. (6) Cough Current Visit: Yes Status: Acute Plan: MANDY DM. IF NEED WILL DO FU CXR. (7) Lumbar radicular pain Current Visit: Yes Status: Chronic Plan: GABAPENTIN QHS. RAISE DOSE TO 200 MG. HE IS BETTER AND WILL NOT GET NARCOTICS FOR THIS.
[2020-10-27] MEDS: ENOXAPARIN 30 MG/0.3 ML SQ SCH (16:34)
[2020-10-27] MEDS: ATORVASTATIN 80 MG TAB PO SCH (20:11)
[2020-10-27] MEDS: GABAPENTIN 100 MG CAP PO SCH (20:11)
[2020-10-27] MEDS: TAMSULOSIN 0.4 MG SR CAP PO SCH (20:12)
[2020-10-27] MEDS: MELATONIN 3 MG TABLET PO PRN (21:57)
[2020-10-27] MEDS: LORAZEPAM 0.5 MG TABLET PO PRN (21:57)
[2020-10-28] MEDS: JUVEN PACKET PO SCH ×2 (08:00→20:00)
[2020-10-28] MEDS: NICOTINE 14 MG/PAT TD SCH (08:39)
[2020-10-28] MEDS: MULTIVIT W/ MINERAL TAB PO SCH (08:40)
[2020-10-28] MEDS: METOPROLOL TAR 25 MG TAB PO SCH ×2 (08:40→20:41)
[2020-10-28] MEDS: AMIODARONE HCL 200 MG TAB PO SCH (08:40)
[2020-10-28] MEDS: DOCUSATE NA 100 MG CAP PO SCH (08:40)
[2020-10-28] MEDS: ASPIRIN EC 81 MG TAB PO SCH (08:40)
[2020-10-28] MEDS: THIAMINE HCL 100 MG TABLET PO SCH (08:40)
[2020-10-28] MEDS: FOLIC ACID 1 MG TABLET PO SCH (08:40)
[2020-10-28] MEDS: LIDOCAINE 4% PATCH TOP SCH (08:40)
[2020-10-28] MEDS: allopurinoL 300 MG TAB PO SCH (08:41)
[2020-10-28] MEDS: CITRACAL SLOW PO SCH (10:24)
[2020-10-28] MEDS: POTASSIUM CL ER 10 MEQ TABLET PO SCH (10:24)
--- NOTE | 2020-10-28 15:47 | P.PN ---
Subjective Date of Service: 10/28/20 Chief Complaint: FALLS OFTEN. DJD HE IS DECONDITIONED, HAS R HUMERUS FRACTURE AND ORHTO IS DOING CONSERVATIVE THERAPY. HE NEEDS TO BE TRAINED TO WALK AGAIN. COUGH TODAY. HE WAS COVID NEG. MR FIGUEROA IS DOING GOOD. THEY FOUND LISTERINE BOTTLE FULL OF WHISKEY FROM HIS ROOM. FEELS WELL. NO PAIN. ULCER L SIDE LEG. DRY. HE HAS THIGH AND LEG PAIN. HE IS STABLE. HAS NO FEVER. HIS PAIN IS L THIGH PAIN AND IT IS BETTER. HIS LEG PAIN IS LESSER NOW. HE HAS NO COMPLAINTS TODAY. Physical Examination - Vital Signs Temperature: 99.3 F Blood Pressure: 133/55 Pulse: 58 Respirations: 16 Pulse Ox (%): 98 - Physical Exam General: Mild distress HEENT: Atraumatic, PERRLA, EOMI Neck: Supple, JVD not distended Respiratory: Clear to auscultation bilaterally, Normal air movement Cardiovascular: Regular rate/rhythm, Normal S1 S2 Gastrointestinal: Normal bowel sounds, No tenderness Musculoskeletal: No tenderness Integumentary: No rashes Neurological: Normal speech, Normal tone, Normal affect Lymphatics: No axilla or inguinal lymphadenopathy - Studies Medications List Reviewed: Yes Assessment And Plan - Current Problems (Diagnosis) (1) Risk for falls Current Visit: Yes Status: Acute Plan: HE IS DEBILITATED. LIVES WITH . NOT ABLE TO AMBULATE NEEDS TO BE TRAINED WITH WALKER AND DISABLED RIGHT ARM. (2) Hypertension Current Visit: No Status: Chronic Qualifiers: Hypertension type: essential hypertension Qualified Code(s): I10 - Essential (primary) hypertension (3) Osteoarthritis Current Visit: No Status: Chronic Qualifiers: Osteoarthritis location: multiple joints (4) Right humeral fracture Current Visit: Yes Status: Acute Plan: HE ALREADY HAS BEEN SEEN BY ORTHO . MD HOME ON THURSDAY. 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 WORKING WELL SO FAR THIS IS A CHRONIC ISSUE. (6) Cough Current Visit: Yes Status: Acute Plan: MANDY DM. IF NEED WILL DO FU CXR. (7) Lumbar radicular pain Current Visit: Yes Status: Chronic Plan: GABAPENTIN QHS. RAISE DOSE TO 200 MG. HE IS BETTER AND WILL NOT GET NARCOTICS FOR THIS.
[2020-10-28] MEDS: ENOXAPARIN 30 MG/0.3 ML SQ SCH (16:31)
[2020-10-28] MEDS: GABAPENTIN 100 MG CAP PO SCH (20:40)
[2020-10-28] MEDS: TAMSULOSIN 0.4 MG SR CAP PO SCH (20:41)
[2020-10-28] MEDS: ATORVASTATIN 80 MG TAB PO SCH (20:41)
[2020-10-28] MEDS: MELATONIN 3 MG TABLET PO PRN (21:56)
[2020-10-28] MEDS: LORAZEPAM 0.5 MG TABLET PO PRN (21:56)
[2020-10-29 06:05] LABS: Potassium 4.6 mmol/L (3.5-5.1)
[2020-10-29] MEDS: NICOTINE 14 MG/PAT TD SCH (08:00)
[2020-10-29] MEDS: LIDOCAINE 4% PATCH TOP SCH (08:00)
[2020-10-29] MEDS: JUVEN PACKET PO SCH ×2 (08:37→19:29)
[2020-10-29] MEDS: CITRACAL SLOW PO SCH (08:38)
[2020-10-29] MEDS: THIAMINE HCL 100 MG TABLET PO SCH (08:38)
[2020-10-29] MEDS: allopurinoL 300 MG TAB PO SCH (08:38)
[2020-10-29] MEDS: FOLIC ACID 1 MG TABLET PO SCH (08:38)
[2020-10-29] MEDS: DOCUSATE NA 100 MG CAP PO SCH (08:38)
[2020-10-29] MEDS: MULTIVIT W/ MINERAL TAB PO SCH (08:38)
[2020-10-29] MEDS: POTASSIUM CL ER 10 MEQ TABLET PO SCH (08:38)
[2020-10-29] MEDS: AMIODARONE HCL 200 MG TAB PO SCH (08:38)
[2020-10-29] MEDS: ASPIRIN EC 81 MG TAB PO SCH (08:38)
[2020-10-29] MEDS: METOPROLOL TAR 25 MG TAB PO SCH ×2 (08:39→19:26)
[2020-10-29] MEDS: MAGNESIUM HYDROXIDE 8% 30 ML PO PRN (15:20)
--- NOTE | 2020-10-29 15:22 | RAD REPORT ---
EXAM DESCRIPTION: US - Urinary Bladder - 10/29/2020 12:16 pm CLINICAL HISTORY: Abdominal pain FINDINGS: Prevoid bladder volume equals 295 cc Postvoid bladder volume equals 70 cc No ascites IMPRESSION: Prevoid bladder volume equals 295 cc Postvoid bladder volume equals 70 cc
[2020-10-29] MEDS: ENOXAPARIN 30 MG/0.3 ML SQ SCH (16:55)
[2020-10-29] MEDS: TAMSULOSIN 0.4 MG SR CAP PO SCH (19:26)
[2020-10-29] MEDS: GABAPENTIN 100 MG CAP PO SCH (19:27)
[2020-10-29] MEDS: MELATONIN 3 MG TABLET PO PRN (19:27)
[2020-10-29] MEDS: ATORVASTATIN 80 MG TAB PO SCH (19:27)
[2020-10-29] MEDS: LORAZEPAM 0.5 MG TABLET PO PRN (19:29)
--- NOTE | 2020-10-29 21:31 | P.PN ---
Subjective Date of Service: 10/29/20 Chief Complaint: FALLS OFTEN. DJD HE IS DECONDITIONED, HAS R HUMERUS FRACTURE AND ORHTO IS DOING CONSERVATIVE THERAPY. HE NEEDS TO BE TRAINED TO WALK AGAIN. COUGH TODAY. HE WAS COVID NEG. MR FIGUEROA IS DOING GOOD. THEY FOUND LISTERINE BOTTLE FULL OF WHISKEY FROM HIS ROOM. FEELS WELL. NO PAIN. ULCER L SIDE LEG. DRY. HE HAS THIGH AND LEG PAIN. HE IS STABLE. HAS NO FEVER. HIS PAIN IS L THIGH PAIN AND IT IS BETTER. HIS LEG PAIN IS LESSER NOW. HE HAS NO COMPLAINTS TODAY. HE IS STABLE. HE IS WALKING WITH WALKER HIS LEG WOUNDS HAVE HEALED. Physical Examination - Vital Signs Temperature: 98.0 F Blood Pressure: 148/62 Pulse: 51 Respirations: 17 Pulse Ox (%): 100 - Physical Exam General: Mild distress HEENT: Atraumatic, PERRLA, EOMI Neck: Supple, JVD not distended Respiratory: Clear to auscultation bilaterally, Normal air movement Cardiovascular: Regular rate/rhythm, Normal S1 S2 Gastrointestinal: Normal bowel sounds, No tenderness Musculoskeletal: No tenderness Integumentary: No rashes Neurological: Normal speech, Normal tone, Normal affect Lymphatics: No axilla or inguinal lymphadenopathy - Studies Laboratory Data (last 24 hrs) 10/29/20 05:33: Sodium 139, Potassium 4.6, BUN 39 H, Creatinine 1.70 H, Glucose 104 Medications List Reviewed: Yes Assessment And Plan - Current Problems (Diagnosis) (1) Risk for falls Current Visit: Yes Status: Acute Plan: HE IS DEBILITATED. LIVES WITH . NOT ABLE TO AMBULATE NEEDS TO BE TRAINED WITH WALKER AND DISABLED RIGHT ARM. (2) Hypertension Current Visit: No Status: Chronic Qualifiers: Hypertension type: essential hypertension Qualified Code(s): I10 - Essential (primary) hypertension (3) Osteoarthritis Current Visit: No Status: Chronic Qualifiers: Osteoarthritis location: multiple joints (4) Right humeral fracture Current Visit: Yes Status: Acute Plan: HE ALREADY HAS BEEN SEEN BY ORTHO . PA HOME ON THURSDAY. CONT PT MEDICALLY MANAGED. 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 WORKING WELL SO FAR THIS IS A CHRONIC ISSUE. (6) Cough Current Visit: Yes Status: Acute Plan: MANDY DM. IF NEED WILL DO FU CXR. (7) Lumbar radicular pain Current Visit: Yes Status: Chronic Plan: GABAPENTIN QHS. RAISE DOSE TO 200 MG. HE IS BETTER AND WILL NOT GET NARCOTICS FOR THIS. 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
--- NOTE | 2020-10-30 02:51 | FAST ---
[employer]ITY [employer] FORM SHIFT START DATE/TIME: 10/29/2020 19:00 (THERAPY DIRECTOR) SHIFT END DATE/TIME: 10/30/2020 07:00 (THERAPY DIRECTOR) NAME TABATHA BELTRE DATE OF : 1940 DATE OF ADMISSION: 10/19/2020 13:06 (THERAPY DIRECTOR) PHONE: AGE: 80 SSN# [id number] GENDER: Male ENCOUNTER PHYSICIAN: Dr. Mitchel Nieves M.D. ADMISSION DIAGNOSIS: - Debility 16 - Debility (16) FX SHOULDER, DEBILITATED. EATING: Not assessed/no information CODE: - ORAL HYGIENE: Not assessed/no information CODE: - TOILETING HYGIENE: TOILETING HYGIENE - STEP 1: Does the patient complete the activity by him/herself with no assistance (physical, verbal/nonverbal cueing, setup/clean-up)? No. TOILETING HYGIENE - STEP 2: Does the patient need only setup/clean-up assistance from one helper? No. TOILETING HYGIENE - STEP 3: Does the patient need only verbal/nonverbal cueing or touching/steadying/contact guard assistance fro m one helper? Yes. 1. [id number] ADMISSION PERFORMANCE: Supervision or touching assistance CODE: 04 BATHING: Not assessed/no information CODE: - DRESSING - UPPER BODY: Not assessed/no information CODE: - DRESSING - LOWER BODY: Not assessed/no information CODE: - PUTTING ON/TAKING OFF FOOTWEAR: Not assessed/no information CODE: - ROLL LEFT AND RIGHT: ROLL LEFT AND RIGHT - STEP 1: Does the patient complete the activity by him/herself with no assistance (physical, verbal/nonverbal cueing, setup/clean-up)? No. ROLL LEFT AND RIGHT - STEP 2: Does the patient need only setup/clean-up assistance from one helper? No. ROLL LEFT AND RIGHT - STEP 3: Does the patient need only verbal/nonverbal cueing or touching/steadying/contact guard assistance fro m one helper? Yes. 1. [id number] ADMISSION PERFORMANCE: Supervision or touching assistance CODE: 04 SIT TO LYING: SIT TO LYING - STEP 1: Does the patient complete the activity by him/herself with no assistance (physical, verbal/nonverbal cueing, setup/clean-up)? No. SIT TO LYING - STEP 2: Does the patient need only setup/clean-up assistance from one helper? No. SIT TO LYING - STEP 3: Does the patient need only verbal/nonverbal cueing or touching/steadying/contact guard assistance fro m one helper? Yes. 1. [id number] ADMISSION PERFORMANCE: Supervision or touching assistance CODE: 04 LYING TO SITTING: LYING TO SITTING ON SIDE OF BED - STEP 1: Does the patient complete the activity by him/herself with no assistance (physical, verbal/nonverbal cueing, setup/clean-up)? No. LYING TO SITTING ON SIDE OF BED - STEP 2: Does the patient need only setup/clean-up assistance from one helper? No. LYING TO SITTING ON SIDE OF BED - STEP 3: Does the patient need only verbal/nonverbal cueing or touching/steadying/contact guard assistance fro m one helper? Yes. 1. [id number] ADMISSION PERFORMANCE: Supervision or touching assistance CODE: 04 SIT TO STAND: SIT TO STAND - STEP 1: Does the patient complete the activity by him/herself with no assistance (physical, verbal/nonverbal cueing, setup/clean-up)? No. SIT TO STAND - STEP 2: Does the patient need only setup/clean-up assistance from one helper? No. SIT TO STAND - STEP 3: Does the patient need only verbal/nonverbal cueing or touching/steadying/contact guard assistance fro m one helper? Yes. 1. [id number] ADMISSION PERFORMANCE: Supervision or touching assistance CODE: 04 TRANSFERS: BED, CHAIR: CHAIR/[id number] TRANSFER - STEP 1: Does the patient complete the activity by him/herself with no assistance (physical, verbal/nonverbal cueing, setup/clean-up)? No. CHAIR/[id number] TRANSFER - STEP 2: Does the patient need only setup/clean-up assistance from one helper? No. CHAIR/[id number] TRANSFER - STEP 3: Does the patient need only verbal/nonverbal cueing or touching/steadying/contact guard assistance fro m one helper? Yes. 1. [id number] ADMISSION PERFORMANCE: Supervision or touching assistance CODE: 04 TRANSFER TOILET: TOILET TRANSFER - STEP 1: Does the patient complete the activity by him/herself with no assistance (physical, verbal/nonverbal cueing, setup/clean-up)? No. TOILET TRANSFER - STEP 2: Does the patient need only setup/clean-up assistance from one helper? No. TOILET TRANSFER - STEP 3: Does the patient need only verbal/nonverbal cueing or touching/steadying/contact guard assistance fro m one helper? Yes. 1. [id number] ADMISSION PERFORMANCE: Supervision or touching assistance CODE: 04 TRANSFERS: CAR: Not assessed/no information CODE: - WALK 10 FEET: Not assessed/no information CODE: - 1 STEP (CURB): Not assessed/no information CODE: - PICKING UP OBJECT: Not assessed/no information CODE: - DOES THE PATIENT USE A WHEELCHAIR/SCOOTER? CODE: EXPR WHEEL 50 FEET WITH TWO TURNS: Not assessed/no information CODE: - INDICATE THE TYPE OF WHEELCHAIR/SCOOTER USED: CODE: EXPR WHEEL 150 FEET: Not assessed/no information CODE: - INDICATE THE TYPE OF WHEELCHAIR/SCOOTER USED: CODE: EXPR BLADDER AND BOWEL: H350. BLADDER CONTINENCE (3-DAY ASSESSMENT PERIOD): Always continent (no documented incontinence) CODE: 0 H400. BOWEL CONTINENCE (3-DAY ASSESSMENT PERIOD): Always continent CODE: 0
[2020-10-30] MEDS: POTASSIUM CL ER 10 MEQ TABLET PO SCH (07:32)
[2020-10-30] MEDS: CITRACAL SLOW PO SCH (07:32)
[2020-10-30] MEDS: JUVEN PACKET PO SCH (07:32)
[2020-10-30] MEDS: AMIODARONE HCL 200 MG TAB PO SCH (07:33)
[2020-10-30] MEDS: THIAMINE HCL 100 MG TABLET PO SCH (07:33)
[2020-10-30] MEDS: ASPIRIN EC 81 MG TAB PO SCH (07:34)
[2020-10-30] MEDS: allopurinoL 300 MG TAB PO SCH (07:34)
[2020-10-30] MEDS: MULTIVIT W/ MINERAL TAB PO SCH (07:34)
[2020-10-30] MEDS: DOCUSATE NA 100 MG CAP PO SCH (07:34)
[2020-10-30] MEDS: FOLIC ACID 1 MG TABLET PO SCH (07:34)
[2020-10-30] MEDS: METOPROLOL TAR 25 MG TAB PO SCH (07:34)
[2020-10-30 07:35] VITALS: BP 135/61
[2020-10-30 08:41] VITALS: TEMP 97.9
--- NOTE | 2020-10-30 08:56 | RAD REPORT ---
EXAM DESCRIPTION: US - Renal Ultrasound-Complete - 10/30/2020 8:22 am CLINICAL HISTORY: Abdominal pain COMPARISON: November 2019 FINDINGS: The right kidney measures 11 cm with a normal echotexture. 2.7 centimeters cyst The left kidney measures 12 cm with a normal echotexture. Several cysts. The largest measures 4.3 meng timeters. It is unchanged in size Hydronephrosis is not seen. No gross abnormality of bladder IMPRESSION: Bilateral renal cysts
[2020-10-30] MEDS: NICOTINE 14 MG/PAT TD SCH (09:31)
[2020-10-30] MEDS: LIDOCAINE 4% PATCH TOP SCH (09:32)
--- NOTE | 2020-10-30 13:04 | P.PN ---
Subjective Date of Service: 10/30/20 Chief Complaint: FALLS OFTEN. DJD Subjective: Improving HE IS DECONDITIONED, HAS R HUMERUS FRACTURE AND ORHTO IS DOING CONSERVATIVE THERAPY. HE NEEDS TO BE TRAINED TO WALK AGAIN. COUGH TODAY. HE WAS COVID NEG. MR FIGUEROA IS DOING GOOD. THEY FOUND LISTERINE BOTTLE FULL OF WHISKEY FROM HIS ROOM. FEELS WELL. NO PAIN. ULCER L SIDE LEG. DRY. HE HAS THIGH AND LEG PAIN. HE IS STABLE. HAS NO FEVER. HIS PAIN IS L THIGH PAIN AND IT IS BETTER. HIS LEG PAIN IS LESSER NOW. HE HAS NO COMPLAINTS TODAY. HE IS STABLE. HE IS WALKING WITH WALKER HIS LEG WOUNDS HAVE HEALED. MR BELTRE IS STABLE TO GO HOME. HE IS AMBUALTING WITH WALKER HE KNOWS IF HE WANTS TO STAY WALKING HE WILL HAVE TO ATTEMPT AND QUIT DRINKING ALSO. Physical Examination - Vital Signs Temperature: 97.9 F Blood Pressure: 135/61 Pulse: 54 Respirations: 18 Pulse Ox (%): 100 - Physical Exam General: Obese HEENT: Atraumatic, PERRLA, EOMI Neck: Supple, JVD not distended Respiratory: Clear to auscultation bilaterally, Normal air movement Cardiovascular: Regular rate/rhythm, Normal S1 S2 Gastrointestinal: Normal bowel sounds, No tenderness Musculoskeletal: No tenderness Integumentary: No rashes Neurological: Normal speech, Normal tone, Normal affect Lymphatics: No axilla or inguinal lymphadenopathy - Studies Medications List Reviewed: Yes Assessment And Plan - Current Problems (Diagnosis) (1) Risk for falls Current Visit: Yes Status: Acute Plan: HE IS DEBILITATED. LIVES WITH . NOT ABLE TO AMBULATE NEEDS TO BE TRAINED WITH WALKER AND DISABLED RIGHT ARM. (2) Hypertension Current Visit: No Status: Chronic Qualifiers: Hypertension type: essential hypertension Qualified Code(s): I10 - Essential (primary) hypertension (3) Osteoarthritis Current Visit: No Status: Chronic Qualifiers: Osteoarthritis location: multiple joints (4) Right humeral fracture Current Visit: Yes Status: Acute Plan: HE ALREADY HAS BEEN SEEN BY [facility]TH[facility] . [facility] HOME ON THURSDAY. CONT PT MEDICALLY MANAGED. 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 WORKING WELL SO FAR THIS IS A CHRONIC ISSUE. (6) Cough Current Visit: Yes Status: Acute Plan: MANDY DM. IF NEED WILL DO FU CXR. (7) Lumbar radicular pain Current Visit: Yes Status: Chronic Plan: GABAPENTIN QHS. RAISE DOSE TO 200 MG. HE IS BETTER AND WILL NOT GET NARCOTICS FOR THIS. 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
--- NOTE | 2020-10-30 18:20 | R.PN ---
PROGRESS NOTES ENCOUNTER DATE AND TIME: 10/30/2020 18:16 (MANAGER NUCLEAR) NAME TABATHA BELTRE DATE OF : 1940 DATE OF ADMISSION: 10/19/2020 13:06 (MANAGER NUCLEAR) FX SHOULDER, DEBILITATEDCHIEF COMPLAINT: Shoulder fracture and debility SUBJECTIVE: Pt denied any depression. Pt denied any Shortness of Breath. Ambulated 600' with standby assistance to modified hernando. WBC 5.6, Hgb 10.3, Training Technician 1.72, prealbumin 18.7. The patient had a Listerine bottle containing whiskey. The bottle was confiscated. LFTs showed mildly elevated AST of 78 and alkaline phosphatase of 156. Ambulated 300' and 350' with standby assistance using a rolling walker. VITAL SIGNS Temperature: 97.9 F SBP/DBP: 135/61 Pulse: 54 Resp: 16 MEDICATION ALLERGIES: No Known Drug Allergies (NKDA) ENVIRONMENTAL ALLERGIES: - Substance Allergies None Known - Other Allergies None Known NURSING: - Shower allowing shower ACTIVITIES OOB only with supervision THERAPIES: - Dietary and Nutrition Adequate Nutrition. Nutritional Education. Nutritional Supplements. PHYSICAL EXAM - Gen Patient sitting in wheelchair - Skin Left more than right leg skin desquamation and hyperemic left leg cellulitis Normacephalic - Eyes No abnormalities - ENMT No abnormalities - Neck No abnormalities - CVS RRR - Chest No abnormalities - Resp No wheezing - Abd Soft - GI Non distended No abnormalities - Frequent urination due to prostate cancer - Ext Moderate edema in both lower extremities. - MSK 4+/5 weakness in both lower extremities. - Neuro No focal deficits - Psych No abnormalities ASSESSMENT: Pt. is a 80 yo Right-handed male of unknown race.On 10/18/[address] [facility] with diagnosis FX SHOULDER, DEBILITATED.His impairment category is Debility 16 - Debility (16). Pre-morbidly, Pt. was independent/mod-I in Self-Care, Communication, and Social Cognition; and he had good Locomotion, Transfers Control, Sphincter Control, and Social Cognition.Currently, he has defici ts of Locomotion, Balance, Safety Awareness, Sphincter Control, and Endurance.Pt. is now referred to [facility] for acute in-patient rehabilitation in order to maximize patient's functional independence in activities of daily living, strength, ROM, and mobility.- Rehab Goal Patient has realistic goal of being discharged at assistance level 7-Ind to reside at Home with Fami ly/Relatives. MDM/PLAN: - Physical Therapy Need for home safety evaluation - to improve, our physical therapists will perform initial evaluatio n of pt's status upon admission and devise an individualized program for Home Evaluation Need in caregiver upon discharge - to improve, our physical therapists will perform initial evaluati on of pt's status upon admission and devise an individualized program for Caregiver Training New precaution - to improve, our physical therapists will perform initial evaluation of pt's status upon admission and devise an individualized program for Patient precaution education Edema - to improve, our physical therapists will perform initial evaluation of pt's status upon admi ssion and devise an individualized program for Elevation Training, and Lymphedema Therapy Poor balance - to improve, our physical therapists will perform initial evaluation of pt's status up on admission and devise an individualized program for Balance Training Poor endurance - to improve, our physical therapists will perform initial evaluation of pt's status upon admission and devise an individualized program for Endurance Training Achieving independence - to improve, our physical therapists will perform initial evaluation of pt's status upon admission and devise an individualized program for Community Reintegration Activities - Occupational Therapy Need for health care marketing manager - to improve, our occupation therapists will perform initial evaluation of pt's status upon admission and devise an individualized program for Caregiver Training - Other See attached MAR (Medication Administration Record) - Diet Type Continue Regular - Diet - Liquid Texture Continue Regular - Tube Feed Continue N/A - Diet - Solid Texture Continue Regular - Shower allowing shower FUNCTIONAL STATUS: UPDATED AT WEEKLY TEAM CONFERENCE - Bladder Same accident frequency: 7-Ind - No accidents in the past 7 days - Bowel Same accident frequency: 7-Ind - No accidents in the past 7 days - Walking Same score based on distance walked: 0(N/A) - Wheelchair Same score based on distance traveled: 0(N/A) FUNCTIONAL STATUS: - Self-Care A. Eating Ind B. Grooming Pawan C. Bathing Gustabo D. Dressing - Upper Gustabo E. Dressing - Lower modA F. Toileting [place]abo - Sphincter Control G. Bladder control Pawan H. Bowel control Pawan - Transfers Control I. Bed/Chair/Wheelchair Gustabo J. Toilet Gustabo K. Tub/Shower modA - Locomotion L. Walk/Wheelchair (B) Gustabo M. Stairs maxA - Communication N. Comprehension (B) Ind O. Expression (B) Ind - Social Cognition P. Social Interaction Ind Q. Problem Solving Pawan R. Memory Ind - Endurance Good - Balance Good - Safety Awareness Good QI SCORES: - Self-Care A. Eating 03-Partial/moderate assistance B. Oral hygiene 03-Partial/moderate assistance C. Toileting hygiene 03-Partial/moderate assistance E. Shower/bathe self 03-Partial/moderate assistance F. Upper body dressing 03-Partial/moderate assistance G. Lower body dressing 03-Partial/moderate assistance H. Putting on/taking off footwear 03-Partial/moderate assistance - Mobility A. Roll left and right 03-Partial/moderate assistance B. Sit to lying 03-Partial/moderate assistance C. Lying to sitting on side of bed 03-Partial/moderate assistance D. Sit to stand 03-Partial/moderate assistance E. Chair/eto-il-dmeda transfer 03-Partial/moderate assistance F. Toilet transfer 03-Partial/moderate assistance G. Car transfer 03-Partial/moderate assistance I. Walk 10 feet 03-Partial/moderate assistance J. Walk 50 feet with two turns 88-Not attempted due to medical condition or safety concerns K. Walk 150 feet 88-Not attempted due to medical condition or safety concerns L. Walking 10 feet on uneven surfaces 88-Not attempted due to medical condition or safety concerns M. 1 step (curb) 88-Not attempted due to medical condition or safety concerns N. 4 steps 88-Not attempted due to medical condition or safety concerns O. 12 steps 88-Not attempted due to medical condition or safety concerns P. Picking up object 88-Not attempted due to medical condition or safety concerns R. Wheel 50 feet with two turns 88-Not attempted due to medical condition or safety concerns S. Wheel 150 feet 88-Not attempted due to medical condition or safety concerns - Bladder and Bowel Bladder continence Bowel continence - Endurance Good - Balance Good - Safety Awareness Good CURRENT FUNC. DEFICITS: Self-Care and Mobility SIGNATURE PANEL: (MANAGER NUCLEAR)
--- NOTE | 2020-11-16 15:26 | R.DS ---
DISCHARGE SUMMARY FACILITY [facility] MR# [id number] NAME TABATHA BELTRE ADDRESS [address] [facility] [place] [address] PHONE DATE OF 1940 AGE 80 SSN# [id number] GENDER Male DEXTERITY Right-handed MARITAL STATUS RACE Unknown race ENCOUNTER PHYSICIAN Dr. Mitchel Nieves M.D. REFERRING DOCTOR LARON RHOADES REFERRING FACILITY [facility] DISCHARGE DIAGNOSIS: - Debility 16 - Debility (16) FX SHOULDER, DEBILITATED. 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 NURSING: - Shower allowing shower ACTIVITIES OOB only with supervision THERAPIES: - Dietary and Nutrition Adequate Nutrition Nutritional Education Nutritional Supplements HISTORY OF PRESENT ILLNESS: Pt. is a 80 yo Right-handed male of unknown race.On 10/18/2020 he was admitted to [facility] with diagnosis FX SHOULDER, DEBILITATED.His impairment category is Debility 16 - Debility (16). Pre-morbidly, Pt. was independent/mod-I in Self-Care, Communication, and Social Cognition; and he had good Locomotion, Transfers Control, Sphincter Control, and Social Cognition.Currently, he has defici ts of Locomotion, Balance, Safety Awareness, Sphincter Control, and Endurance.Pt. is now referred to [facility] for acute in-patient rehabilitation in order to maximize patient's functional independence in activities of daily living, strength, ROM, and mobility.- Rehab Goal Patient has realistic goal of being discharged at assistance level 7-Ind to reside at Home with Fami ly/Relatives. DIET - LIQUID TEXTURE: On 10/18/2020 Pt was upgraded to Regular Diet - Liquid Texture. DIET - SOLID TEXTURE: On 10/18/2020 Pt was upgraded to Regular Diet - Solid Texture. DIET TYPE: On 10/18/2020 Pt was upgraded to Regular Diet Type. TUBE FEED: On 10/18/2020 Pt was changed to N/A Tube Feed. DISCHARGE PHYSICAL EXAM - Gen Patient sitting in wheelchair - Skin Left more than right leg skin desquamation and hyperemic left leg cellulitis Normacephalic - Eyes No abnormalities - ENMT No abnormalities - Neck No abnormalities - CVS RRR - Chest No abnormalities - Resp No wheezing - Abd Soft - GI Non distended No abnormalities - Frequent urination due to prostate cancer - Ext Moderate edema in both lower extremities. - MSK 4+/5 weakness in both lower extremities. - Neuro No focal deficits - Psych No abnormalities FUNCTIONAL STATUS: - Self-Care A. Eating 7-Ind B. Grooming 6-Pawan C. Bathing 6-Pawan D. Dressing - Upper 6-Pawan E. Dressing - Lower 6-Pawan F. Toileting 6-Pawan - Sphincter Control G. Bladder control 6-Pawan H. Bowel control 6-Pawan - Transfers Control I. Bed/Chair/Wheelchair 6-Pawan J. Toilet 6-Pawan K. Tub/Shower 6-Pawan - Locomotion L. Walk/Wheelchair (B) 6-Pawan M. Stairs 6-Pawan - Communication N. Comprehension (B) 7-Ind O. Expression (B) 7-Ind - Social Cognition P. Social Interaction 7-Ind Q. Problem Solving 6-Pawan R. Memory 7-Ind - Endurance Good - Balance Good - Safety Awareness Good QI SCORES: - Self-Care A. Eating 03-Partial/moderate assistance B. Oral hygiene 03-Partial/moderate assistance C. Toileting hygiene 03-Partial/moderate assistance E. Shower/bathe self 03-Partial/moderate assistance F. Upper body dressing 03-Partial/moderate assistance G. Lower body dressing 03-Partial/moderate assistance H. Putting on/taking off footwear 03-Partial/moderate assistance - Mobility A. Roll left and right 03-Partial/moderate assistance B. Sit to lying 03-Partial/moderate assistance C. Lying to sitting on side of bed 03-Partial/moderate assistance D. Sit to stand 03-Partial/moderate assistance E. Chair/tug-sb-aswsv transfer 03-Partial/moderate assistance F. Toilet transfer 03-Partial/moderate assistance G. Car transfer 03-Partial/moderate assistance I. Walk 10 feet 03-Partial/moderate assistance J. Walk 50 feet with two turns 88-Not attempted due to medical condition or safety concerns K. Walk 150 feet 88-Not attempted due to medical condition or safety concerns L. Walking 10 feet on uneven surfaces 88-Not attempted due to medical condition or safety concerns M. 1 step (curb) 88-Not attempted due to medical condition or safety concerns N. 4 steps 88-Not attempted due to medical condition or safety concerns O. 12 steps 88-Not attempted due to medical condition or safety concerns P. Picking up object 88-Not attempted due to medical condition or safety concerns R. Wheel 50 feet with two turns 88-Not attempted due to medical condition or safety concerns S. Wheel 150 feet 88-Not attempted due to medical condition or safety concerns - Bladder and Bowel Bladder continence Bowel continence - Endurance Good - Balance Good - Safety Awareness Good DISCHARGE INSTRUCTIONS: - N/A Aspirin 81 mg daily, Lovenox 30 mg sq daily. DISCHARGE PLAN, FOLLOW UP CARE PROVISIONS: - Estimated Length of Stay (days) 13. - Consensus on plan Discharge plan has been discussed with primary caregiver. Patient/Family is in agreement with the jeffrey n. Primary caregiver is in agreement with the plan. - Patient/Family Goals Return home independently. - Planned Living Setting Upon Discharge Home, to live with Family/Relatives. Transitional Living. 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
== END 2020-10-30 15:20 | disposition home health service (06) | DRG 560 ==
LOC: 5TH 10-19 10:33
PROVIDERS: ADMIT Psychiatry & Neurology Neurology with Special Qualifications in Child Neurology; ATTEND Psychiatry & Neurology Neurology with Special Qualifications in Child Neurology
DX: S42.301D Unspecified fracture of shaft of humerus, right arm, subsequent encounter for fracture with routine healing (principal); L97.829 Non-pressure chronic ulcer of other part of left lower leg with unspecified severity; I87.312 Chronic venous hypertension (idiopathic) with ulcer of left lower extremity; I87.2 Venous insufficiency (chronic) (peripheral); M54.16 Radiculopathy, lumbar region; I12.9 Hypertensive chronic kidney disease with stage 1 through stage 4 chronic kidney disease, or unspecified chronic kidney disease; N18.2 Chronic kidney disease, stage 2 (mild); M15.9 Polyosteoarthritis, unspecified; I25.10 Atherosclerotic heart disease of native coronary artery without angina pectoris; J44.9 Chronic obstructive pulmonary disease, unspecified; R53.81 Other malaise; R05 Cough; Z85.46 Personal history of malignant neoplasm of prostate; Z91.81 History of falling; Z79.82 Long term (current) use of aspirin; Z79.899 Other long term (current) drug therapy; Z87.891 Personal history of nicotine dependence; Z20.822 Contact with and (suspected) exposure to COVID-19
CPT/HCPCS: 11042; 36415; 71045; 73010; 76770; 76857; 80048; 80076; 80320; 81001; 82040; 83735; 84134; 85025; 87086; 87088; 93970; 97110; 97112; 97116; 97124; 97163; 97530; 97542; 99204; 99251; A6010; J1650; U0002; U0003